=== PATIENT | female | born 1970 | race Caucasian/White ===

== ENCOUNTER 2017-12-07 09:26 | Emergency (ER) | payer BC, SELFPAY ==
[2017-12-07 09:32] VITALS: BP 119/79; PULSE 90; RESP 16; TEMP 37; O2SAT 93
--- NOTE | 2017-12-07 09:42 | DI.RAD_ITS ---
SYMPTOM/DIAGNOSIS: COUGH PA AND LATERAL CHEST: No priors for comparison. The heart is normal in size. The lungs are clear. The mediastinal structures and pleura appear intact. CONCLUSION: Normal chest.
[2017-12-07 09:53] VITALS: RESP 7; O2SAT 93
[2017-12-07] MEDS: Albuterol/Ipratropium 3 ML UPD VIAL UPD (09:53)
--- NOTE | 2017-12-07 10:17 | W.ED.GENAD ---
Discharge Plan Disposition Patient Disposition: HOME Discharge Details Chief Complaint: RespSymp Clinical Impression: Asthma, Pneumonia Primary Care Provider: Neha Espinoza ED Provider: Rudy Shah Home Meds and New Rx's Prescriptions: No Action codeine-guaifenesin 10-100 mg/5 mL liquid 10 ml PO ONCE PRN (Reason: cough) Qty: 120 RF: 0 Discharge Instructions Instructions: Asthma (ED), Pneumonia (ED) Medical Decision Making 9:45 --47-year-old female with history of childhood asthma presents with productive cough worsening over the past 2 weeks. No respiratory distress. Saturating 93% with intermittent cough. Lungs concerning for rhonchi and wheeze bilaterally. Concern for bronchitis versus pneumonia with superimposed acute asthma flare. Patient being treated with DuoNeb. Will check chest x-ray to assess for pneumonia. -- cxr reviewed and interpreted by me: scattered bilateral infiltrates, no consolidation. 10:35 -- Will start doxycyline. Will give inhaler and spacer and demonstrate use. Usual and customary discharge instructions were provided to the patient. She was advised to call her doctor on Friday to arrange follow-up appointment. Patient understands importance of timely follow-up this week. She was encouraged to return to the ER should she have any worsening or new concerning symptoms. HPI General Mode of arrival: ambulatory. Date/Time Provider Initiated Documentation: 12/07/17 09:41. Limitations to Documentation: no limitations. Information obtained by: patient. HPI Narrative: 47-year-old female with history of childhood asthma presents with chief complaint of cough. Cough has been persistent for the past 2 weeks. Cough is productive. Cough is worsening. Patient was prescribed cough medicine which is not helping. She does have some associated wheezing. No associated chest pain. No recent travel. Today she does feel feverish. Related Data Home Medications Medication Instructions Recorded Confirmed codeine 10 mg-guaifenesin 100 mg/5 10 ml PO ONCE PRN #120 ml 12/04/17 12/07/17 mL oral liquid Previous Rx's Medication Instructions Recorded codeine 10 mg-guaifenesin 100 mg/5 10 ml PO ONCE PRN #120 ml 12/04/17 mL oral liquid Allergies Allergy/AdvReac Type Severity Reaction Status Date / Time No Known Allergies Allergy Unverified 12/07/17 09:36 General Stated Complaint: RespSymp APOLINAR: 3 Review of Systems Review of Systems All systems reviewed & are unremarkable except as noted in HPI and below Cardiovascular Reports system reviewed and no additional complaints, except as docu Respiratory Reports as per HPI [facility] Social History Smoking/Tobacco Use Status: Never Surgical History Hysterectomy (01/17/11) Oophrectomy, Left (01/17/11) Exam Const General: cooperative and no acute distress HENMT Head: normocephalic and atraumatic Mouth: moist mucous membranes Eyes Conjunctivae: normal conjunctivae Sclera: normal sclerae EOM: EOM intact bilaterally Neck Neck: trachea midline and supple Resp Auscultation: no rales, rhonchi (bilateral) and wheezes lower bilaterally Cardio Jugular venous pressure: no JVD Rate: regular rate and not tachycardic Rhythm: regular rhythm GI Palpation: soft, not firm, no guarding, no masses, not rigid and nontender Skin General skin exam: no rashes or lesions noted Neuro General: alert, awake, oriented x3 and tone normal Extrem General: no edema Psych Appearance: grossly normal Mental Status: mental status grossly normal Speech and Movement: speech and movement normal Course Vital Signs Temperature 37 C 12/07/17 09:32 Pulse 90 12/07/17 09:32 Respiratory Rate 16 12/07/17 09:32 Blood Pressure 119/79 12/07/17 09:32 Pulse Oximetry 93 L 12/07/17 09:32 Temperature 37 C 12/07/17 09:32 Temperature Source Skin 12/07/17 09:32 Pulse 90 12/07/17 09:32 Respiratory Rate 16 12/07/17 09:32 Respiratory Effort Non-Labored 12/07/17 09:36 Respiratory Depth Normal 12/07/17 09:36 Blood Pressure 119/79 12/07/17 09:32 Blood Pressure Position Sitting 12/07/17 09:32 Pulse Oximetry 93 L 12/07/17 09:53 Oxygen Delivery Method Room Air 12/07/17 09:53 Oxygen Flow Rate 0 12/07/17 09:53 Pain Level 4 12/07/17 09:32
--- NOTE | 2017-12-07 10:21 | ED.GENADUL_ITS ---
Discharge Plan Disposition Patient Disposition: HOME Discharge Details Chief Complaint: RespSymp Clinical Impression: Asthma, Pneumonia Primary Care Provider: Neha Espinoza ED Provider: Rudy Shah Home Meds and New Rx's Prescriptions: No Action codeine-guaifenesin 10-100 mg/5 mL liquid 10 ml PO ONCE PRN (Reason: cough) Qty: 120 RF: 0 Discharge Instructions Instructions: Asthma (ED), Pneumonia (ED) Medical Decision Making 9:45 --47-year-old female with history of childhood asthma presents with productive cough worsening over the past 2 weeks. No respiratory distress. Saturating 93% with intermittent cough. Lungs concerning for rhonchi and wheeze bilaterally. Concern for bronchitis versus pneumonia with superimposed acute asthma flare. Patient being treated with DuoNeb. Will check chest x-ray to assess for pneumonia. -- cxr reviewed and interpreted by me: scattered bilateral infiltrates, no consolidation. 10:35 -- Will start doxycyline. Will give inhaler and spacer and demonstrate use. Usual and customary discharge instructions were provided to the patient. She was advised to call her doctor on Friday to arrange follow-up appointment. Patient understands importance of timely follow-up this week. She was encouraged to return to the ER should she have any worsening or new concerning symptoms. HPI General Mode of arrival: ambulatory . Date/Time Provider Initiated Documentation: 12/07/17 09:41 . Limitations to Documentation: no limitations . Information obtained by: patient . HPI Narrative: 47-year-old female with history of childhood asthma presents with chief complaint of cough. Cough has been persistent for the past 2 weeks. Cough is productive. Cough is worsening. Patient was prescribed cough medicine which is not helping. She does have some associated wheezing. No associated chest pain. No recent travel. Today she does feel feverish. Related Data Home Medications Medication Instructions Recorded Confirmed codeine 10 mg-guaifenesin 100 mg/5 10 ml PO ONCE PRN #120 ml 12/04/17 12/07/17 mL oral liquid Previous Rx's Medication Instructions Recorded codeine 10 mg-guaifenesin 100 mg/5 10 ml PO ONCE PRN #120 ml 12/04/17 mL oral liquid Allergies Allergy/AdvReac Type Severity Reaction Status Date / Time No Known Allergies Allergy Unverified 12/07/17 09:36 General Stated Complaint: RespSymp APOLINAR: 3 Review of Systems Review of Systems All systems reviewed & are unremarkable except as noted in HPI and below Cardiovascular Reports system reviewed and no additional complaints, except as docu Respiratory Reports as per HPI [facility] Social History Smoking/Tobacco Use Status: Never Surgical History Hysterectomy (01/17/11) Oophrectomy, Left (01/17/11) Exam Const General: cooperative and no acute distress HENMT Head: normocephalic and atraumatic Mouth: moist mucous membranes Eyes Conjunctivae: normal conjunctivae Sclera: normal sclerae EOM: EOM intact bilaterally Neck Neck: trachea midline and supple Resp Auscultation: no rales, rhonchi (bilateral) and wheezes lower bilaterally Cardio Jugular venous pressure: no JVD Rate: regular rate and not tachycardic Rhythm: regular rhythm GI Palpation: soft, not firm, no guarding, no masses, not rigid and nontender Skin General skin exam: no rashes or lesions noted Neuro General: alert, awake, oriented x3 and tone normal Extrem General: no edema Psych Appearance: grossly normal Mental Status: mental status grossly normal Speech and Movement: speech and movement normal Course Vital Signs Temperature 37 C 12/07/17 09:32 Pulse 90 12/07/17 09:32 Respiratory Rate 16 12/07/17 09:32 Blood Pressure 119/79 12/07/17 09:32 Pulse Oximetry 93 L 12/07/17 09:32 Temperature 37 C 12/07/17 09:32 Temperature Source Skin 12/07/17 09:32 Pulse 90 12/07/17 09:32 Respiratory Rate 16 12/07/17 09:32 Respiratory Effort Non-Labored 12/07/17 09:36 Respiratory Depth Normal 12/07/17 09:36 Blood Pressure 119/79 12/07/17 09:32 Blood Pressure Position Sitting 12/07/17 09:32 Pulse Oximetry 93 L 12/07/17 09:53 Oxygen Delivery Method Room Air 12/07/17 09:53 Oxygen Flow Rate 0 12/07/17 09:53 Pain Level 4 12/07/17 09:32
[2017-12-07 10:23] VITALS: RESP 4
[2017-12-07] MEDS: Albuterol HFA 8 GM 60 PUFF INH IH (10:42)
[2017-12-07] MEDS: Doxycycline Hyclate 100 MG CAP PO (10:43)
--- NOTE | 2017-12-07 10:56 | DI.VRAD_ITS ---
EXAM: XR Chest, 2 Views EXAM DATE/TIME: 12/07/2017 9:42 AM CLINICAL HISTORY: 47 years old, female; Signs and symptoms; Other: Cough TECHNIQUE: XR of the chest, 2 views. COMPARISON: No relevant prior studies available. FINDINGS: Lungs: Unremarkable. No consolidation. Pleural space: Unremarkable. No pleural effusion. No pneumothorax. Heart/Mediastinum: Unremarkable. No cardiomegaly. Bones/joints: Unremarkable for patient's age. IMPRESSION: No acute findings. Dictated and Authenticated by: Lily Barr MD. Ordering:JEFERSON LAUREN MD
[2017-12-07 11:05] VITALS: BP 121/78; PULSE 87; RESP 16; TEMP 37; O2SAT 95
== END 2017-12-07 10:57 | disposition home or self-care (01) ==
PROVIDERS: Emergency Provider Student in an Organized Health Care Education/Training Program
DX: J18.9 Pneumonia, unspecified organism (principal); J45.909 Unspecified asthma, uncomplicated
CPT/HCPCS: 94640; 99283; 71046; J7620

== ENCOUNTER 2017-12-09 08:41 | Inpatient (IN) | payer BC, SELFPAY ==
[2017-12-09] VITALS (12 sets, daily range): BP systolic 103–135; BP diastolic 65–96; PULSE 86–105; RESP 1–22; TEMP 36.3–37.2; O2SAT 93–97
[2017-12-09] MEDS: predniSONE 20 MG TAB 60 MG PO (09:42)
[2017-12-09] MEDS: Lactated Ringers 1,000 ML 1000 ML IV (09:43)
[2017-12-09] MEDS: Albuterol/Ipratropium 3 ML UPD VIAL UPD ×2 (09:44→10:03)
[2017-12-09 09:48] LABS: Lactate-non-spesis 0.9 mmol/L (0.6-1.4)
[2017-12-09 09:50] LABS: Abs Immature Grans 0.03 k/cumm (0.0-0.09); Absolute Basophil Count 0.05 k/cumm (0.0-0.2); Absolute Eosinophil Count 0.86 k/cumm (0.0-0.7); Absolute Lymphocyte Count 1.38 k/cumm (1.2-3.4); Absolute Monocyte Count 0.47 k/cumm (0.11-0.7); Basophils % 0.6; Eosinophils % 10.9; HCT 45.1 % (36.0-46.0); HGB 15.7 g/dL (12.0-15.5); Immature Grans % 0.4; Lymphocytes % 17.5; Mean Corp. HGB Concentration 34.8 g/dL (32.0-36.0); Mean Corpuscular Hemoglobin 31.2 pg (27.0-33.0); Mean Corpuscular Volume 89.7 fL (80-95); Mean Platelet Volume 10.3 fL (8.0-11.0); Neutrophils % 64.6; Platelet Count 233 x1000/uL (130-400); RBC 5.03 m/cumm (4.00-5.20); RBC Distribution Width 13.8 % (11.7-14.6); White Blood Cell Count 7.89 k/cumm (4.4-10.8)
[2017-12-09 10:04] LABS: ALT 30 U/L (12-78); AST 23 U/L (15-37); Albumin 3.6 g/dL (3.4-5.0); Alkaline Phosphatase 78 U/L (46-116); Anion Gap 9.6 mmol/L (3-11); BUN 10 mg/dL (7-18); Bilirubin, Total 0.5 mg/dL (0.2-1.0); CO2 24.4 mmol/L (21.0-32.0); CREATININE 0.96 mg/dL (0.55-1.02); Calcium 9.2 mg/dL (8.5-10.1); Chloride 105 mmol/L (98-107); Glucose 106 mg/dL (70-100); Potassium 4.2 mmol/L (3.5-5.1); Sodium 139 mmol/L (136-145); Total Protein 7.4 g/dL (6.4-8.2)
--- NOTE | 2017-12-09 10:24 | DI.RAD_ITS ---
SYMPTOM/DIAGNOSIS: COUGH PA AND LATERAL CHEST: Comparison is made with 12/07/17. The heart is normal in size. The lungs are clear. The mediastinal structures and pleura appear intact. CONCLUSION: Normal chest.
--- NOTE | 2017-12-09 12:00 | ED.GENADUL_ITS ---
Discharge Plan Discharge Details Chief Complaint: RespSymp Primary Care Provider: Neha Espinoza ED Provider: Rudy Shah Home Meds and New Rx's Prescriptions: No Action codeine-guaifenesin 10-100 mg/5 mL liquid 10 ml PO ONCE PRN (Reason: cough) Qty: 120 RF: 0 doxycycline hyclate 100 mg capsule 100 mg PO BID Qty: 13 RF: 0 albuterol sulfate [Ventolin HFA] 90 mcg/actuation Hfa Aerosol Inhaler 2 puff Inhalation Q4H PRN PRN30 Days RF: 0 Medical Decision Making 47-year-old female with history of childhood asthma, here with 2+ weeks of productive cough and wheezing. Tachycardic on arrival. Patient was seen here on 12/07/2017 and diagnosed with bronchitis versus early pneumonia with superimposed acute asthma flare. She was started on albuterol inhaler as well as doxycycline which she has been using without relief. Patient given IVF bolus, 2 DuoNeb and one albuterol nebulized treatments here in the emergency department. She was also given prednisone. Chest x-ray was reviewed and interpreted by radiology: Negative. Labs were reviewed and are nondiagnostic. Of note she does not have a leukocytosis and normal lactate. Reassessment, patient continues to have significant wheeze and productive cough. She continues to have SOB. Given failing outpatient treatment, and no improvement here in the emergency department, I will admit for further treatment. HPI General Date/Time Provider Initiated Documentation: 12/09/17 09:04 . Limitations to Documentation: no limitations . Information obtained by: patient . HPI Narrative: 47-year-old female with history of childhood asthma presents with chief complaint of wheezing. Patient notes productive cough persistent for the past 2 weeks. She also has associated wheezing that is not improved with albuterol inhaler that she has been using every 4 hours as prescribed. Patient was seen here on 12/07/2017 and started on albuterol inhaler as well as doxycycline. Related Data Home Medications Medication Instructions Recorded Confirmed codeine 10 mg-guaifenesin 100 mg/5 10 ml PO ONCE PRN #120 ml 12/04/17 12/09/17 mL oral liquid albuterol sulfate [Ventolin HFA] 2 puff INHALATION Q4H PRN PRN 30 12/07/17 Days gm doxycycline hyclate 100 mg PO BID #13 cap 12/07/17 12/09/17 Previous Rx's Medication Instructions Recorded codeine 10 mg-guaifenesin 100 mg/5 10 ml PO ONCE PRN #120 ml 12/04/17 mL oral liquid albuterol sulfate [Ventolin HFA] 2 puff INHALATION Q4H PRN PRN 30 12/07/17 Days gm doxycycline hyclate 100 mg PO BID #13 cap 12/07/17 Allergies Allergy/AdvReac Type Severity Reaction Status Date / Time No Known Allergies Allergy Unverified 12/09/17 08:49 General Stated Complaint: RespSymp APOLINAR: 3 Review of Systems Review of Systems All systems reviewed & are unremarkable except as noted in HPI and below ENT Reports otalgia and Reports nasal congestion Cardiovascular Denies chest pain and Reports dyspnea Respiratory Reports chest congestion, Reports cough, Reports dyspnea and Reports wheezing Allergic/Immunologic Reports wheezing Exam Const General: cooperative and no acute distress HENMT Head: normocephalic and atraumatic Ears: TM abnormal bulging bilaterally Mouth: moist mucous membranes Throat: posterior oropharynx normal Eyes Conjunctivae: normal conjunctivae Sclera: normal sclerae EOM: EOM intact bilaterally Neck Neck: trachea midline and supple Resp Auscultation: rales bilaterally and wheezes (bilateral) expiratory wheezes Cardio Jugular venous pressure: no JVD Rate: regular rate and not tachycardic Rhythm: regular rhythm GI Palpation: soft, not firm, no guarding, no masses, not rigid and nontender Skin General skin exam: no rashes or lesions noted Neuro General: alert, awake, oriented x3 and tone normal Extrem General: no edema Psych Appearance: grossly normal Mental Status: mental status grossly normal Speech and Movement: speech and movement normal Course Vital Signs Temperature 37.2 C 12/09/17 08:45 Pulse 105 H 12/09/17 08:45 Respiratory Rate 18 12/09/17 08:45 Blood Pressure 134/96 H 12/09/17 08:45 Pulse Oximetry 95 12/09/17 08:45 Temperature 37.2 C 12/09/17 08:45 Temperature Source Skin 12/09/17 08:45 Pulse 105 H 12/09/17 08:45 Respiratory Rate 18 12/09/17 08:45 Respiratory Effort 12/09/17 08:46 Respiratory Depth Normal 12/09/17 08:46 Blood Pressure 134/96 H 12/09/17 08:45 Blood Pressure Position Sitting 12/09/17 08:45 Pulse Oximetry 95 12/09/17 08:45 Oxygen Delivery Method Room Air 12/09/17 08:45 Oxygen Flow Rate 0 12/09/17 08:45
[2017-12-09] MEDS: Albuterol 2.5 MG/3 ML INH SOLN VIAL UPD (12:19)
[2017-12-09] MEDS: Levalbuterol 1.25 MG/3 ML UPD VIAL UPD (14:23)
[2017-12-09] MEDS: Enoxaparin 40 MG/0.4 ML SYR SC (14:35)
[2017-12-09] MEDS: Normal Saline Flush 10 ML SYR (14:36)
[2017-12-09] MEDS: guaiFENesin/CODEINE PHOSPHATE 10 ML CUP PO ×2 (14:36→19:09)
[2017-12-09] MEDS: Normal Saline 1,000 ML 125 ML IV ×2 (14:37→22:39)
--- NOTE | 2017-12-09 18:13 | HPE_ITS ---
Date of service: 12/09/17 Time of Service: 18:00 Assessment and Plan (1) Asthma: Current visit: Yes Status: Chronic Acute exacerbation in setting of likely infectious Bronchitis. Continue aggressive nebs with Duonebs, Budesonide, and Levalbuterol, IV Steroids, and antitussives. Monitor symptoms and pulse ox carefully. (2) Tracheobronchitis: Current visit: Yes Status: Acute Will continue to treat as potentially bacterial Tracheobronchitis - continue Doxycycline, now Day #2, as well as aggressive nebs and IV steroids as above. (3) DVT prophylaxis: Current visit: Yes Status: Acute SC Lovenox. History of Present Illness Chief Complaint: Cough Narrative: Very pleasant 47-year-old woman with a past medical history significant for asthma, initially presented to [facility] 2 days ago with complaints of 2 weeks of unremitting cough. Mrs. Awad originally presented to the emergency department 2 days ago with a reported 2-week history of a continuous cough which causes significant burning and lightheadedness while symptomatic. Initial evaluation in the emergency department included a chest x-ray which was interpreted as a negative , and she was prescribed an antibiotic with doxycycline and an inhaler and discharged home. Despite these measures the patient's symptoms continued and progressed, leading to a repeat visit to the emergency department. A repeat chest x-ray was performed and again interpreted as negative, and other than borderline tachycardia the patient was hemodynamically stable and afebrile. However given the progression and the significance of her symptoms, as well as perceived likely acute exacerbation of her underlying asthma, the patient was referred for admission for further evaluation and treatment. At the time of admission the patient is denying any fevers or chills, but endorsing a cough that is nonproductive. She denies any GI symptoms other than some mild nausea with continued cough pain, but denies any diarrhea or vomiting. She also endorses lightheadedness and near syncope with continued coughing, and subjective sensation of dehydration. Review of Systems Review of Systems All systems reviewed & are unremarkable except as noted in HPI and below Meds Home Medications Medication Instructions Recorded Confirmed Type codeine 10 mg-guaifenesin 100 mg/5 10 ml PO ONCE PRN #120 ml 12/04/17 12/09/17 Rx mL oral liquid albuterol sulfate [Ventolin HFA] 2 puff INHALATION Q4H PRN PRN 30 12/07/17 Rx Days gm doxycycline hyclate 100 mg PO BID #13 cap 12/07/17 12/09/17 Rx Allergies Allergy/AdvReac Type Severity Reaction Status Date / Time No Known Allergies Allergy Unverified 12/09/17 08:49 Exam Narrative Exam Narrative: General: Patient appears mildly ill but not toxic, AAOX3, NAD Neck: Supple CV: Regular, borderline tachycardic, S1S2, No rubs, murmurs, or gallops. Pulmonary: Diffusely rhonchorous breath sounds with wheezing Abdomen: + Bowel Sounds, soft, nontender, nondistended Vascular: No lower extremity edema Neurologic: CN II-XII grossly intact. No focal deficits. Psych: Normal mood and affect. Results Labs : 12/09/17 09:40 12/09/17 09:40 Laboratory Results - last 24 hr 12/09/17 12/09/17 12/09/17 09:40 09:40 09:40 WBC 7.89 RBC 5.03 Hgb 15.7 H Hct 45.1 MCV 89.7 MCH 31.2 MCHC 34.8 RDW 13.8 Plt Count 233 MPV 10.3 Immature Gran % 0.4 Neutrophils % 64.6 Lymphocytes % 17.5 Monocytes % 6.0 Eosinophils % 10.9 Basophils % 0.6 Absolute Neutrophils 5.10 Absolute Lymphocytes 1.38 Absolute Monocytes 0.47 Absolute Eosinophils 0.86 H Absolute Basophils 0.05 Sodium 139 Potassium 4.2 Chloride 105 Carbon Dioxide 24.4 Anion Gap 9.6 BUN 10 Creatinine 0.96 Estimated GFR/1.73 m2 >= 60.00 Glucose 106 H Lactate 0.9 Calcium 9.2 Total Bilirubin 0.5 AST 23 ALT 30 Alkaline Phosphatase 78 Total Protein 7.4 Albumin 3.6
[2017-12-09] MEDS: methylPREDNISolone SUCC 40 MG VIAL IVP (19:08)
[2017-12-09] MEDS: Budesonide 0.5 MG/2 ML UPD VIAL UPD (19:09)
[2017-12-09] MEDS: Doxycycline Hyclate 100 MG CAP PO (19:09)
[2017-12-09] MEDS: Benzonatate 200 MG CAP PO (19:16)
[2017-12-10] MEDS: Normal Saline 1,000 ML 125 ML IV ×2 (07:01→15:59)
[2017-12-10] MEDS: methylPREDNISolone SUCC 40 MG VIAL IVP ×2 (07:02→18:58)
[2017-12-10] MEDS: Normal Saline Flush 10 ML SYR ×4 (07:02→18:59)
[2017-12-10 07:15] VITALS: PULSE 90; RESP 20; RESP 4; O2SAT 96
[2017-12-10] MEDS: Albuterol/Ipratropium 3 ML UPD VIAL UPD ×2 (07:15→14:09)
[2017-12-10] MEDS: Budesonide 0.5 MG/2 ML UPD VIAL UPD ×2 (07:17→20:29)
[2017-12-10 07:28] LABS: Abs Immature Grans 0.04 k/cumm (0.0-0.09); Absolute Basophil Count 0.02 k/cumm (0.0-0.2); Absolute Lymphocyte Count 1.41 k/cumm (1.2-3.4); Absolute Monocyte Count 0.71 k/cumm (0.11-0.7); Absolute Neutrophil Count 14.26 k/cumm (1.2-6.7); Basophils % 0.1; HCT 39.8 % (36.0-46.0); HGB 14.5 g/dL (12.0-15.5); Immature Grans % 0.2; Lymphocytes % 8.6; Mean Corp. HGB Concentration 36.4 g/dL (32.0-36.0); Mean Corpuscular Hemoglobin 33.4 pg (27.0-33.0); Mean Corpuscular Volume 91.7 fL (80-95); Mean Platelet Volume 10.5 fL (8.0-11.0); Monocytes % 4.3; Neutrophils % 86.8; Platelet Count 247 x1000/uL (130-400); RBC 4.34 m/cumm (4.00-5.20); RBC Distribution Width 13.9 % (11.7-14.6); White Blood Cell Count 16.43 k/cumm (4.4-10.8)
[2017-12-10 07:35] VITALS: BP 135/71; PULSE 95; RESP 22; TEMP 36.3; O2SAT 93
[2017-12-10 07:44] LABS: Anion Gap 9.7 mmol/L (3-11); BUN 9 mg/dL (7-18); CO2 23.3 mmol/L (21.0-32.0); CREATININE 0.85 mg/dL (0.55-1.02); Calcium 8.6 mg/dL (8.5-10.1); Chloride 107 mmol/L (98-107); Glucose 108 mg/dL (70-100); Potassium 3.9 mmol/L (3.5-5.1); Sodium 140 mmol/L (136-145)
[2017-12-10] MEDS: Doxycycline Hyclate 100 MG CAP PO ×2 (07:46→20:28)
[2017-12-10] MEDS: Benzonatate 200 MG CAP PO ×3 (07:46→20:28)
[2017-12-10] MEDS: guaiFENesin/CODEINE PHOSPHATE 10 ML CUP PO ×3 (11:11→21:49)
[2017-12-10 11:26] VITALS: PULSE 98; RESP 14; RESP 4; RESP 7; O2SAT 92
[2017-12-10] MEDS: Levalbuterol 1.25 MG/3 ML UPD VIAL UPD (11:26)
--- NOTE | 2017-12-10 11:50 | PHARADMIT ---
Addendum entered by Anthony Hogue III 12/11/17 16:08: Pharmacy Note Subjective Infectious bronchitis, treated with aggresive nebulizer & steroid therapy. Objective VS-OK No Labs No BM yet Assessment Continue oral Doxycycline, using Tessalon & Daniel-AC for persistent cough. Plan Plan was for her to be discharged today, but feels she needs aggressive therapy. Original Note: Admission Pharmacy Clinical Review ACUTE BRONCHITIS Code Status Full Code Current Weight Wgt- 90.7 kg Renally Cleared and Narrow Therapeutic Index Meds CrCl~ 76.5 mL/min Meds-OK QTc Value / Action Taken NA BP Control, Fever BP- 135/71 Tmax- 37.0C Electrolytes reviewed Na- 140 K+3.9 DVT Prophylaxis Lovenox Opiate Usage / Scheduled Bowel Regimen Ordered Yes Yes Plt/SCr for Heparin / Enoxaparin Plts-247 SCr- 0.85 INR for Warfarin na H/H stable, WBC/Bands H&H- 14.5/39.8 WBC- 16.4 Antibiotic appropriateness Doxycycline Cultures and Sensitivities none Surgical ABX d/c within 24 hr na DM control / Insulin Dosing BG- 108 Heart Failure (Check EF%) (HOSEA's, B-Block, Diuretics) none IV to PO Switch No Home Meds Reviewed Yes Home Meds Not Ordered Ventolin inhaler Comments
--- NOTE | 2017-12-10 13:24 | INITIAL_ITS ---
- If Service Date Differs Date of service: 12/10/17 Time of Service: 12:52 Care Management Initial Assess REASON FOR HOSPITALIZATION:: Bronchititis, asthma PAST MEDICAL HISTORY/PAST SURGICAL HISTORY:: Asthma, Surgical Hx: Hysterectomy, Oophrectomy PREVIOUS FUNCTIONAL STATUS/SOCIAL/FAMILY SUPPORTS:: Yandy, lives with her spouse in [place], [place] she is independent. 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 CURRENT FUNCTIONAL STATUS:: Yandy is sitting up in bed she is alert and engaged with CM. She states she has not had symptoms of her asthma in about 20 years and has not been taking medicaitons to treat it. ADVANCE DIRECTIVES:: None on file would like the forms to review Has patient been provided with information about the portal?: Yes Did the patient sign up for the portal?: No CODE STATUS:: Full Code INSURANCE COVERAGE / FINANCIAL ISSUES:: [employer] CURRENT HOME/COMMUNITY SERVICES/EQUIPMENT:: No current services at this time. PRIMARY CARE PHYSICIAN:: Neha Espinoza APRN POTENTIAL DISCHARGE NEEDS:: Follow up appointment with primary care scheduled prior to discharge. PATIENT/FAMILY EDUCATION NEEDS:: Discharge education, limitations, follow-up plan of care, ask me 3 discussion and self-management. TRANSPORTATION:: Via private car with family at time of discharge. PLAN:: Yandy is receiving IV fluids, IV steroids, and nebulizer treatments. She continues on oral antibiotics. She continues to have a harsh cough. She will be discharged home when medically ready per provider.
--- NOTE | 2017-12-10 15:01 | CHAPLAIN ---
Yandy said her respiratory problems came on quickly and she is beginning to feel better. 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 She told me she went to work at the [employer] the week after she graduated from high school and has been there 30 years. Her parents and will be in later to visit. She seems to be comfortable being here, and said she prefers to be here until her respiratory condition improves.
[2017-12-10] MEDS: Enoxaparin 40 MG/0.4 ML SYR SC (15:13)
[2017-12-10 15:56] VITALS: BP 122/70; PULSE 93; RESP 18; TEMP 36; O2SAT 92
--- NOTE | 2017-12-10 17:15 | PGE_ITS ---
Date of service: 12/10/17 Time of Service: 17:11 Assessment and Plan (1) Asthma: Current visit: Yes Status: Chronic Acute exacerbation in setting of likely infectious Bronchitis. Continue aggressive nebs with Duonebs, Budesonide, and Levalbuterol, IV Steroids, and antitussives. Monitor symptoms and pulse ox carefully. (2) Tracheobronchitis: Current visit: Yes Status: Acute Will continue to treat as potentially bacterial Tracheobronchitis - continue Doxycycline, now Day #3, as well as aggressive nebs and IV steroids as above. (3) DVT prophylaxis: Current visit: Yes Status: Acute SC Lovenox. Subjective Interval history since last seen: Very pleasant 47-year-old woman with a past medical history significant for asthma, admitted from [facility] with diagnosis of Bronchitis with concurrent asthma exacerbation. Mrs. Awad originally presented to the emergency department 2 days ago with a reported 2-week history of a continuous cough which causes significant burning and lightheadedness while symptomatic. Initial evaluation in the emergency department included a chest x-ray which was interpreted as a negative , and she was prescribed an antibiotic with doxycycline and an inhaler and discharged home. Despite these measures the patient's symptoms continued and progressed, leading to a repeat visit to the emergency department. A repeat chest x-ray was performed and again interpreted as negative, and other than borderline tachycardia the patient was hemodynamically stable and afebrile. However given the progression and the significance of her symptoms, as well as perceived likely acute exacerbation of her underlying asthma, the patient was referred for admission for further evaluation and treatment. Today the patient reports unchanged symptoms overall, with continued cough and wheezing, but not worsened. Exam Narrative Exam Narrative: General: Patient appears mildly ill but not toxic, AAOX3, NAD Neck: Supple CV: Regular, borderline tachycardic, S1S2, No rubs, murmurs, or gallops. Pulmonary: Diffusely rhonchorous breath sounds with wheezing Abdomen: + Bowel Sounds, soft, nontender, nondistended Vascular: No lower extremity edema Psych: Normal mood and affect. Objective Objective Clinical Data: Abnormal lab results 12/10/17 12/10/17 Range/Units 07:00 07:00 WBC 16.43 H D (4.4-10.8) k/cumm MCH 33.4 H (27.0-33.0) pg MCHC 36.4 H (32.0-36.0) g/dL Absolute Neutrophils 14.26 H (1.2-6.7) k/cumm Absolute Monocytes 0.71 H (0.11-0.7) k/cumm Glucose 108 H (70-100) mg/dL Vital Signs Temperature 36.0 C L 12/10/17 15:56 Temperature Source Tympanic 12/10/17 15:56 Pulse 93 H 12/10/17 15:56 Pulse Rhythm Regular 12/10/17 07:47 Respiratory Rate 18 12/10/17 15:56 Respiratory Effort 12/10/17 07:47 Respiratory Depth Normal 12/10/17 07:47 Respiratory Pattern Normal 12/10/17 07:47 Blood Pressure 122/70 12/10/17 15:56 Blood Pressure Position Sitting 12/09/17 08:45 Pulse Oximetry 92 L 12/10/17 15:56 Oxygen Delivery Method Room Air 12/10/17 15:56 Oxygen Flow Rate 0 12/10/17 15:56 Pain Level 0 12/09/17 14:45 Intake & Output 12/09/17 12/10/17 12/10/17 23:59 11:59 23:59 Intake Total 1000 / 1000 2660 / 2660 1600 / 1600 Output Total 1700 / 1700 2500 / 2500 700 / 700 Balance -700 / -700 160 / 160 900 / 900 Weight 90.718 kg Intake: IV 1000 / 1000 1000 / 1000 1000 / 1000 Oral 1660 / 1660 600 / 600 Output: Urine 1700 / 1700 2500 / 2500 700 / 700 Other: Urine Color Yellow Yellow Yellow Urine Appearance Clear Clear Clear Urine Odor None Normal Normal Voiding Methods Toilet Toilet Toilet Laboratory Results WBC 16.43 k/cumm (4.4-10.8) H D 12/10/17 07:00 RBC 4.34 m/cumm (4.00-5.20) 12/10/17 07:00 Hgb 14.5 g/dL (12.0-15.5) 12/10/17 07:00 Hct 39.8 % (36.0-46.0) 12/10/17 07:00 MCV 91.7 fL (80-95) 12/10/17 07:00 MCH 33.4 pg (27.0-33.0) H 12/10/17 07:00 MCHC 36.4 g/dL (32.0-36.0) H 12/10/17 07:00 RDW 13.9 % (11.7-14.6) 12/10/17 07:00 Plt Count 247 x1000/uL (130-400) 12/10/17 07:00 MPV 10.5 fL (8.0-11.0) 12/10/17 07:00 Immature Gran % 0.2 12/10/17 07:00 Neutrophils % 86.8 12/10/17 07:00 Lymphocytes % 8.6 12/10/17 07:00 Monocytes % 4.3 12/10/17 07:00 Eosinophils % 0.0 12/10/17 07:00 Basophils % 0.1 12/10/17 07:00 Absolute Neutrophils 14.26 k/cumm (1.2-6.7) H 12/10/17 07:00 Absolute Lymphocytes 1.41 k/cumm (1.2-3.4) 12/10/17 07:00 Absolute Monocytes 0.71 k/cumm (0.11-0.7) H 12/10/17 07:00 Absolute Eosinophils 0.00 k/cumm (0.0-0.7) 12/10/17 07:00 Absolute Basophils 0.02 k/cumm (0.0-0.2) 12/10/17 07:00 Sodium 140 mmol/L (136-145) 12/10/17 07:00 Potassium 3.9 mmol/L (3.5-5.1) 12/10/17 07:00 Chloride 107 mmol/L (98-107) 12/10/17 07:00 Carbon Dioxide 23.3 mmol/L (21.0-32.0) 12/10/17 07:00 Anion Gap 9.7 mmol/L (3-11) 12/10/17 07:00 BUN 9 mg/dL (7-18) 12/10/17 07:00 Creatinine 0.85 mg/dL (0.55-1.02) 12/10/17 07:00 Estimated GFR/1.73 m2 >= 60.00 (mL/min/1.73m2) 12/10/17 07:00 Glucose 108 mg/dL (70-100) H 12/10/17 07:00 Lactate 0.9 mmol/L (0.6-1.4) 12/09/17 09:40 Calcium 8.6 mg/dL (8.5-10.1) 12/10/17 07:00 Total Bilirubin 0.5 mg/dL (0.2-1.0) 12/09/17 09:40 AST 23 U/L (15-37) 12/09/17 09:40 ALT 30 U/L (12-78) 12/09/17 09:40 Alkaline Phosphatase 78 U/L (46-116) 12/09/17 09:40 Total Protein 7.4 g/dL (6.4-8.2) 12/09/17 09:40 Albumin 3.6 g/dL (3.4-5.0) 12/09/17 09:40
[2017-12-11] VITALS (8 sets, daily range): BP systolic 113–152; BP diastolic 69–77; PULSE 81–96; RESP 2–18; TEMP 36.1–37.1; O2SAT 93–96
[2017-12-11] MEDS: Levalbuterol 1.25 MG/3 ML UPD VIAL UPD (00:16)
[2017-12-11] MEDS: Normal Saline 1,000 ML 125 ML IV ×3 (02:00→19:52)
[2017-12-11] MEDS: Normal Saline Flush 10 ML SYR (06:02)
[2017-12-11] MEDS: methylPREDNISolone SUCC 40 MG VIAL IVP ×2 (06:02→18:46)
[2017-12-11] MEDS: Albuterol/Ipratropium 3 ML UPD VIAL UPD ×2 (07:24→17:08)
[2017-12-11] MEDS: Budesonide 0.5 MG/2 ML UPD VIAL UPD ×2 (07:25→19:44)
[2017-12-11] MEDS: Doxycycline Hyclate 100 MG CAP PO ×2 (10:04→19:45)
[2017-12-11] MEDS: Benzonatate 200 MG CAP PO ×3 (10:04→19:44)
[2017-12-11] MEDS: guaiFENesin/CODEINE PHOSPHATE 10 ML CUP PO ×3 (11:20→21:22)
--- NOTE | 2017-12-11 13:06 | DI.RAD_ITS ---
SYMPTOMS/DIAGNOSIS: ABNL EXAM, ? DEVELOPING INFILTRATE PA AND LATERAL CHEST: The heart is normal in size. The lungs are clear. The mediastinal structures and pleura appear intact. CONCLUSION: Normal chest.
[2017-12-11] MEDS: Enoxaparin 40 MG/0.4 ML SYR SC (14:39)
[2017-12-11] MEDS: Docusate Sodium 100 MG CAP PO (15:37)
--- NOTE | 2017-12-11 15:54 | PGE_ITS ---
Assessment and Plan (1) Asthma: Current visit: Yes Status: Chronic Acute exacerbation in setting of likely infectious Bronchitis. Continue aggressive nebs with Duonebs, Budesonide, and Levalbuterol, IV Steroids, and antitussives. Monitor symptoms and pulse ox carefully. CXR repeated to ensure lack of infiltrate - again normal. (2) Tracheobronchitis: Current visit: Yes Status: Acute Will continue to treat as potentially bacterial Tracheobronchitis - continue Doxycycline, now Day #4, as well as aggressive nebs and IV steroids as above. (3) DVT prophylaxis: Current visit: Yes Status: Acute SC Lovenox. Subjective Interval history since last seen: Very pleasant 47-year-old woman with a past medical history significant for asthma, admitted from [facility] with diagnosis of Bronchitis with concurrent asthma exacerbation. Mrs. Awad originally presented to the emergency department 2 days ago with a reported 2-week history of a continuous cough which causes significant burning and lightheadedness while symptomatic. Initial evaluation in the emergency department included a chest x-ray which was interpreted as a negative , and she was prescribed an antibiotic with doxycycline and an inhaler and discharged home. Despite these measures the patient's symptoms continued and progressed, leading to a repeat visit to the emergency department. A repeat chest x-ray was performed and again interpreted as negative, and other than borderline tachycardia the patient was hemodynamically stable and afebrile. However given the progression and the significance of her symptoms, as well as perceived likely acute exacerbation of her underlying asthma, the patient was referred for admission for further evaluation and treatment. Today the patient reports essentially unchanged symptoms, with continued cough and wheezing, but perhaps mildly improved. She has developed a mild leukocytosis on IV Steroids. Exam Narrative Exam Narrative: General: Patient appears mildly ill but not toxic, AAOX3, NAD Neck: Supple CV: Regular, borderline tachycardic, S1S2, No rubs, murmurs, or gallops. Pulmonary: Diffusely rhonchorous breath sounds with wheezing. Air entry has improved. Questionable mild area of crackles and decreased breath sounds in the left base. Abdomen: + Bowel Sounds, soft, nontender, nondistended Vascular: No lower extremity edema Psych: Normal mood and affect. Objective Objective Clinical Data: Vital Signs Temperature 36.1 C L 12/11/17 07:45 Temperature Source Tympanic 12/11/17 07:45 Pulse 96 H 12/11/17 07:45 Pulse Rhythm Regular 12/11/17 10:15 Respiratory Rate 18 12/11/17 07:45 Respiratory Effort Non-Labored 12/11/17 10:15 Respiratory Depth Normal 12/11/17 10:15 Respiratory Pattern Normal 12/11/17 10:15 Blood Pressure 152/74 H 12/11/17 07:45 Blood Pressure Position Sitting 12/09/17 08:45 Pulse Oximetry 94 L 12/11/17 07:45 Oxygen Delivery Method Room Air 12/11/17 07:45 Oxygen Flow Rate 0 12/11/17 07:45 Pain Level 4 12/11/17 07:45 Intake & Output 12/10/17 12/11/17 12/11/17 23:59 11:59 23:59 Intake Total 3254.167 / 3254.167 2533.75 / 2533.75 Output Total 1700 / 1700 2200 / 2200 Balance 1554.167 / 1554.167 333.75 / 333.75 Intake: IV 1154.167 / 1358.743 8429.75 / 1843.75 Oral 2100 / 2100 690 / 690 Output: Urine 1700 / 1700 2200 / 2200 Other: Urine Color Yellow Yellow Urine Appearance Clear Clear Urine Odor Normal Normal Comment Voids x 2 in hat on toilet Voiding Methods Toilet Toilet Laboratory Results WBC 16.43 k/cumm (4.4-10.8) H D 12/10/17 07:00 RBC 4.34 m/cumm (4.00-5.20) 12/10/17 07:00 Hgb 14.5 g/dL (12.0-15.5) 12/10/17 07:00 Hct 39.8 % (36.0-46.0) 12/10/17 07:00 MCV 91.7 fL (80-95) 12/10/17 07:00 MCH 33.4 pg (27.0-33.0) H 12/10/17 07:00 MCHC 36.4 g/dL (32.0-36.0) H 12/10/17 07:00 RDW 13.9 % (11.7-14.6) 12/10/17 07:00 Plt Count 247 x1000/uL (130-400) 12/10/17 07:00 MPV 10.5 fL (8.0-11.0) 12/10/17 07:00 Immature Gran % 0.2 12/10/17 07:00 Neutrophils % 86.8 12/10/17 07:00 Lymphocytes % 8.6 12/10/17 07:00 Monocytes % 4.3 12/10/17 07:00 Eosinophils % 0.0 12/10/17 07:00 Basophils % 0.1 12/10/17 07:00 Absolute Neutrophils 14.26 k/cumm (1.2-6.7) H 12/10/17 07:00 Absolute Lymphocytes 1.41 k/cumm (1.2-3.4) 12/10/17 07:00 Absolute Monocytes 0.71 k/cumm (0.11-0.7) H 12/10/17 07:00 Absolute Eosinophils 0.00 k/cumm (0.0-0.7) 12/10/17 07:00 Absolute Basophils 0.02 k/cumm (0.0-0.2) 12/10/17 07:00 Sodium 140 mmol/L (136-145) 12/10/17 07:00 Potassium 3.9 mmol/L (3.5-5.1) 12/10/17 07:00 Chloride 107 mmol/L (98-107) 12/10/17 07:00 Carbon Dioxide 23.3 mmol/L (21.0-32.0) 12/10/17 07:00 Anion Gap 9.7 mmol/L (3-11) 12/10/17 07:00 BUN 9 mg/dL (7-18) 12/10/17 07:00 Creatinine 0.85 mg/dL (0.55-1.02) 12/10/17 07:00 Estimated GFR/1.73 m2 >= 60.00 (mL/min/1.73m2) 12/10/17 07:00 Glucose 108 mg/dL (70-100) H 12/10/17 07:00 Lactate 0.9 mmol/L (0.6-1.4) 12/09/17 09:40 Calcium 8.6 mg/dL (8.5-10.1) 12/10/17 07:00 Total Bilirubin 0.5 mg/dL (0.2-1.0) 12/09/17 09:40 AST 23 U/L (15-37) 12/09/17 09:40 ALT 30 U/L (12-78) 12/09/17 09:40 Alkaline Phosphatase 78 U/L (46-116) 12/09/17 09:40 Total Protein 7.4 g/dL (6.4-8.2) 12/09/17 09:40 Albumin 3.6 g/dL (3.4-5.0) 12/09/17 09:40 Objective Narrative Objective Narrative: Exam(s) a RAD:XR chest 2V PA & lateral SYMPTOMS/DIAGNOSIS: ABNL EXAM, ? DEVELOPING INFILTRATE PA AND LATERAL CHEST: The heart is normal in size. The lungs are clear. The mediastinal structures and pleura appear intact. CONCLUSION: Normal chest.
--- NOTE | 2017-12-11 16:16 | PDOC.CMPRO ---
- If Service Date Differs Date of service: 12/11/17 Time of Service: 16:16 Care Management Progress Note S/O: CM met with patient at the bedside she states she does not feel ready for discharge today. She continues to have some shortness of breath with ambulation from the bathroom back to the bed. She is currently receiving IV steroids, oral antibiotics and updrafts. her oxygen saturation has been 90's on room air. She continues to have a harsh cough. She will be changed to inpatient today and anticipate she will be discharged on Friday with follow up primary care. CM provided advance directive packet and instruction she will review. She will notify CM if she has questions or assistance in completing the form. A: Betty is a 47 year old female with a history of asthma admitted with acute bronchitises. P: Betty will be discharged home when medically ready per provider. She will transition to oral steroids, and continue oral antibiotics. She will need a primary care appointment scheduled prior to discharge. CM to continue to provide support to patient, family and care team discharge planning.
[2017-12-11] MEDS: Normal Saline Flush 10 ML SYR 30 ML (18:46)
[2017-12-11] MEDS: Polyethylene Glycol 3350 17 GM PACKET PO (19:44)
[2017-12-12 00:14] VITALS: BP 132/77; PULSE 85; RESP 18; TEMP 36.4; O2SAT 96
[2017-12-12] MEDS: Normal Saline 1,000 ML 125 ML IV (03:31)
[2017-12-12] MEDS: methylPREDNISolone SUCC 40 MG VIAL IVP (06:00)
[2017-12-12] MEDS: Normal Saline Flush 10 ML SYR (06:09)
[2017-12-12 06:10] VITALS: RESP 2; RESP 4
[2017-12-12] MEDS: Albuterol/Ipratropium 3 ML UPD VIAL UPD (06:10)
[2017-12-12 06:16] VITALS: PULSE 88; O2SAT 99
[2017-12-12 07:40] VITALS: BP 136/80; PULSE 90; RESP 18; TEMP 37; O2SAT 93
[2017-12-12] MEDS: Budesonide 0.5 MG/2 ML UPD VIAL UPD (08:49)
[2017-12-12 08:50] VITALS: O2SAT 94
[2017-12-12] MEDS: Benzonatate 200 MG CAP PO (09:40)
[2017-12-12] MEDS: Doxycycline Hyclate 100 MG CAP PO (09:41)
--- NOTE | 2017-12-12 10:24 | PDOC.CMDIS ---
- If Service Date Differs Date of service: 12/12/17 Time of Service: 10:24 LACE Index Scoring Tool - Questions: Length of Stay (in days): 4 - 6 Acuity (Admit via E.D.?): Yes E.D. Visits: 3 - Answers: Total Score: 10 Risk of Readmission: High Risk Care Management Discharge Reason for Hospitalization: Bronchititis, asthma Discharge Plan: Yandy will be discharged home today she will follow up with her primary care. She will complete a steroid taper and antibiotics. Yandy does need any addtional services at this time. She does have paperwork that needs to be completed by [employer] which provider will complete and CM will fax to her employer. Yandy will return home with her spouse at time of discharge via private car. Yandy has decided not to complete her advance directives today and will complete them at home. JOHANNE provided the packet. Patient/Family Education Needs: Discharge education, limiations and follow up plan of care. Self management and ask me three discussion. Yandy ask appropiate questions related to plan of care and follow up plan.
[2017-12-12] MEDS: guaiFENesin/CODEINE PHOSPHATE 10 ML CUP PO (11:17)
--- NOTE | 2017-12-12 11:43 | DSE_ITS ---
DS: Diagnosis Discharge Diagnosis (1) Asthma: Status: Chronic (2) Tracheobronchitis: Status: Acute (3) DVT prophylaxis: Status: Acute Discharge Plan Disposition Patient Disposition: HOME Condition: Improving Discharge Details Reason For Visit: ACUTE BRONCHITIS Admit Date/Time: 12/09/17 12:13 Admit Provider: Tyler Howe Attending Provider: Tyler Howe Primary Care Provider: Rehana Hooper Hospital Course Hospital Course: CC: Cough, Dyspnea HPI: Very pleasant 47-year-old woman with a past medical history significant for asthma, initially presented to [facility] 2 days ago with complaints of 2 weeks of unremitting cough. Mrs. Awad originally presented to the emergency department 2 days ago with a reported 2-week history of a continuous cough which causes significant burning and lightheadedness while symptomatic. Initial evaluation in the emergency department included a chest x-ray which was interpreted as a negative , and she was prescribed an antibiotic with doxycycline and an inhaler and discharged home. Despite these measures the patient's symptoms continued and progressed, leading to a repeat visit to the emergency department. A repeat chest x-ray was performed and again interpreted as negative, and other than borderline tachycardia the patient was hemodynamically stable and afebrile. However given the progression and the significance of her symptoms, as well as perceived likely acute exacerbation of her underlying asthma, the patient was referred for admission for further evaluation and treatment. At the time of admission the patient is denying any fevers or chills, but endorsing a cough that is nonproductive. She denies any GI symptoms other than some mild nausea with continued cough pain, but denies any diarrhea or vomiting. She also endorses lightheadedness and near syncope with continued coughing, and subjective sensation of dehydration. Hospital Course by Problem List: ADMITTING PROVIDER: Tyler Howe M.D. PRIMARY CARE PROVIDER: REHANA HOOPER NP DATE OF ADMIT: 12/09/17 (1) Asthma: Acute exacerbation in setting of likely infectious Bronchitis. Patient was maintained on aggressive nebs with Duonebs, Budesonide, and Levalbuterol, IV Steroids, and antitussives. Symptomatically improved by morning of discharge. CXR repeated to ensure lack of infiltrate in setting of abnormal exam - again normal. Plan on oral steroid taper, liberal use of rescue inhaler, and completion of antibiotic course of underlying bronchitis. (2) Tracheobronchitis: Will continue to treat as potentially bacterial Tracheobronchitis - continue Doxycycline, now Day #3, and complete 7 day course as an outpatient. Prednisone taper and rescue inhaler as above. Home Meds and New Rx's Prescriptions: New prednisone 10 mg tablet 10 mg PO DAILY 8 Days Qty: 34 RF: 0 Continue codeine-guaifenesin 10-100 mg/5 mL liquid 10 ml PO ONCE PRN (Reason: cough) Qty: 120 RF: 0 doxycycline hyclate 100 mg capsule 100 mg PO BID 4 Days Qty: 8 RF: 0 albuterol sulfate [Ventolin HFA] 90 mcg/actuation Hfa Aerosol Inhaler 2 puff Inhalation Q4H PRN PRN30 Days RF: 0 Discharge Instructions Instructions: Asthma (GEN), Acute Bronchitis (GEN) Additional Instructions: Please see your primary care provider within a week of discharge Please take 4 additional days of your antibiotic (Doxycycline). Stand Alone Forms: Nursing Discharge Form Activity:: No strenuous activity Equipment/Supplies:: No Equipment Needed Diet:: As Tolerated Discharge Orders Discharge Orders: Discharge Order (Routine); Ordered 12/12/17 Ordered By: Tyler Howe DS: Data Vitals/I&O Vitals and I&O: Vital Signs Temperature 37 C 12/12/17 07:40 Temperature Source Tympanic 12/12/17 07:40 Pulse 90 12/12/17 07:40 Pulse Rhythm Regular 12/12/17 09:45 Respiratory Rate 18 12/12/17 07:40 Respiratory Effort Non-Labored 12/12/17 09:45 Respiratory Depth Normal 12/12/17 09:45 Respiratory Pattern Normal 12/12/17 09:45 Blood Pressure 136/80 12/12/17 07:40 Blood Pressure Position Sitting 12/09/17 08:45 Pulse Oximetry 94 L 12/12/17 08:50 Oxygen Delivery Method Room Air 12/12/17 08:50 Oxygen Flow Rate 0 12/12/17 08:50 Pain Level 0 12/11/17 20:11 Comment 12/12/17 06:16 Intake & Output 12/11/17 12/11/17 12/12/17 11:59 23:59 11:59 Intake Total 2533.75 / 2533.75 1450 / 1450 1306.25 / 1306.25 Output Total 2200 / 2200 1300 / 1300 2800 / 2800 Balance 333.75 / 333.75 150 / 150 -1493.75 / -1493.75 Intake: IV 1843.75 / 1843.75 1030 / 1030 956.25 / 956.25 Oral 690 / 690 420 / 420 350 / 350 Output: Urine 2200 / 2200 1300 / 1300 2800 / 2800 Other: Urine Color Yellow Yellow Yellow Urine Appearance Clear Clear Clear Urine Odor Normal None None Comment Voids x 2 in hat on toilet Voiding Methods Toilet Toilet Toilet Pending studies at discharge: BILAT ENDOS OCC TUBE NEC (10/11/96) Laparoscopic supracervical hysterectomy [LSH] (01/17/11) Laparoscopic unilateral oophorectomy (01/17/11) WBC 16.43 k/cumm (4.4-10.8) H D 12/10/17 07:00 RBC 4.34 m/cumm (4.00-5.20) 12/10/17 07:00 Hgb 14.5 g/dL (12.0-15.5) 12/10/17 07:00 Hct 39.8 % (36.0-46.0) 12/10/17 07:00 MCV 91.7 fL (80-95) 12/10/17 07:00 MCH 33.4 pg (27.0-33.0) H 12/10/17 07:00 MCHC 36.4 g/dL (32.0-36.0) H 12/10/17 07:00 RDW 13.9 % (11.7-14.6) 12/10/17 07:00 Plt Count 247 x1000/uL (130-400) 12/10/17 07:00 MPV 10.5 fL (8.0-11.0) 12/10/17 07:00 Immature Gran % 0.2 12/10/17 07:00 Neutrophils % 86.8 12/10/17 07:00 Lymphocytes % 8.6 12/10/17 07:00 Monocytes % 4.3 12/10/17 07:00 Eosinophils % 0.0 12/10/17 07:00 Basophils % 0.1 12/10/17 07:00 Absolute Neutrophils 14.26 k/cumm (1.2-6.7) H 12/10/17 07:00 Absolute Lymphocytes 1.41 k/cumm (1.2-3.4) 12/10/17 07:00 Absolute Monocytes 0.71 k/cumm (0.11-0.7) H 12/10/17 07:00 Absolute Eosinophils 0.00 k/cumm (0.0-0.7) 12/10/17 07:00 Absolute Basophils 0.02 k/cumm (0.0-0.2) 12/10/17 07:00 Sodium 140 mmol/L (136-145) 12/10/17 07:00 Potassium 3.9 mmol/L (3.5-5.1) 12/10/17 07:00 Chloride 107 mmol/L (98-107) 12/10/17 07:00 Carbon Dioxide 23.3 mmol/L (21.0-32.0) 12/10/17 07:00 Anion Gap 9.7 mmol/L (3-11) 12/10/17 07:00 BUN 9 mg/dL (7-18) 12/10/17 07:00 Creatinine 0.85 mg/dL (0.55-1.02) 12/10/17 07:00 Estimated GFR/1.73 m2 >= 60.00 (mL/min/1.73m2) 12/10/17 07:00 Glucose 108 mg/dL (70-100) H 12/10/17 07:00 Lactate 0.9 mmol/L (0.6-1.4) 12/09/17 09:40 Calcium 8.6 mg/dL (8.5-10.1) 12/10/17 07:00 Total Bilirubin 0.5 mg/dL (0.2-1.0) 12/09/17 09:40 AST 23 U/L (15-37) 12/09/17 09:40 ALT 30 U/L (12-78) 12/09/17 09:40 Alkaline Phosphatase 78 U/L (46-116) 12/09/17 09:40 Total Protein 7.4 g/dL (6.4-8.2) 12/09/17 09:40 Albumin 3.6 g/dL (3.4-5.0) 12/09/17 09:40
--- NOTE | 2017-12-12 12:12 | W.PM.DS.N ---
Date of service: 12/12/17 Time of Service: 12:12 DS: Diagnosis Discharge Diagnosis (1) Asthma: Status: Chronic (2) Tracheobronchitis: Status: Acute Discharge Plan Disposition Patient Disposition: HOME Condition: Improving Discharge Details Reason For Visit: ACUTE BRONCHITIS Admit Date/Time: 12/09/17 12:13 Admit Provider: Tyler Howe Attending Provider: Tyler Howe Primary Care Provider: Rehana Hooper Hospital Course Hospital Course: CC: Cough, Dyspnea HPI: Very pleasant 47-year-old woman with a past medical history significant for asthma, initially presented to [facility] 2 days ago with complaints of 2 weeks of unremitting cough. Mrs. Awad originally presented to the emergency department 2 days ago with a reported 2-week history of a continuous cough which causes significant burning and lightheadedness while symptomatic. Initial evaluation in the emergency department included a chest x-ray which was interpreted as a negative, and she was prescribed an antibiotic with doxycycline and an inhaler and discharged home. Despite these measures the patient's symptoms continued and progressed, leading to a repeat visit to the emergency department. A repeat chest x-ray was performed and again interpreted as negative, and other than borderline tachycardia the patient was hemodynamically stable and afebrile. However given the progression and the significance of her symptoms, as well as perceived likely acute exacerbation of her underlying asthma, the patient was referred for admission for further evaluation and treatment. At the time of admission the patient is denying any fevers or chills, but endorsing a cough that is nonproductive. She denies any GI symptoms other than some mild nausea with continued cough pain, but denies any diarrhea or vomiting. She also endorses lightheadedness and near syncope with continued coughing, and subjective sensation of dehydration. Hospital Course by Problem List: ADMITTING PROVIDER: Tyler Howe M.D. PRIMARY CARE PROVIDER: REHANA HOOPER NP DATE OF ADMIT: 12/09/17 (1) Asthma: Acute exacerbation in setting of likely infectious Bronchitis. Patient was maintained on aggressive nebs with Duonebs, Budesonide, and Levalbuterol, IV Steroids, and antitussives. Symptomatically improved by morning of discharge. CXR repeated to ensure lack of infiltrate in setting of abnormal exam - again normal. Plan on oral steroid taper, liberal use of rescue inhaler, and completion of antibiotic course of underlying bronchitis. (2) Tracheobronchitis: Will continue to treat as potentially bacterial Tracheobronchitis - continue Doxycycline, now Day #3, and complete 7 day course as an outpatient. Prednisone taper and rescue inhaler as above. Home Meds and New Rx's Prescriptions: New prednisone 10 mg tablet 10 mg PO DAILY 8 Days Qty: 34 RF: 0 Continue codeine-guaifenesin 10-100 mg/5 mL liquid 10 ml PO ONCE PRN (Reason: cough) Qty: 120 RF: 0 doxycycline hyclate 100 mg capsule 100 mg PO BID 4 Days Qty: 8 RF: 0 albuterol sulfate [Ventolin HFA] 90 mcg/actuation Hfa Aerosol Inhaler 2 puff Inhalation Q4H PRN PRN30 Days RF: 0 Discharge Instructions Instructions: Asthma (GEN), Acute Bronchitis (GEN) Additional Instructions: Please see your primary care provider within a week of discharge Please take 4 additional days of your antibiotic (Doxycycline). Stand Alone Forms: Nursing Discharge Form Activity:: No strenuous activity Equipment/Supplies:: No Equipment Needed Diet:: As Tolerated Discharge Orders Discharge Orders: Discharge Order (Routine); Ordered 12/12/17 Ordered By: Tyler Howe Exam Narrative Exam Narrative: General: Patient appears vastly improved, AAOX3, NAD Neck: Supple CV: Regular, borderline tachycardic, S1S2, No rubs, murmurs, or gallops. Pulmonary: Vastly improved rhonchorous breath sounds with improved wheezing. Air entry has improved significantly. Questionable mild area of crackles and decreased breath sounds in the left base. Abdomen: + Bowel Sounds, soft, nontender, nondistended Vascular: No lower extremity edema Psych: Normal mood and affect. DS: Data Vitals/I&O Vitals and I&O: Vital Signs Temperature 37 C 12/12/17 07:40 Temperature Source Tympanic 12/12/17 07:40 Pulse 90 12/12/17 07:40 Pulse Rhythm Regular 12/12/17 09:45 Respiratory Rate 18 12/12/17 07:40 Respiratory Effort Non-Labored 12/12/17 09:45 Respiratory Depth Normal 12/12/17 09:45 Respiratory Pattern Normal 12/12/17 09:45 Blood Pressure 136/80 12/12/17 07:40 Blood Pressure Position Sitting 12/09/17 08:45 Pulse Oximetry 94 L 12/12/17 08:50 Oxygen Delivery Method Room Air 12/12/17 08:50 Oxygen Flow Rate 0 12/12/17 08:50 Pain Level 0 12/11/17 20:11 Comment 12/12/17 06:16 Intake & Output 12/11/17 12/12/17 12/12/17 23:59 11:59 23:59 Intake Total 1450 / 1450 1306.25 / 1306.25 Output Total 1300 / 1300 2800 / 2800 Balance 150 / 150 -1493.75 / -1493.75 Intake: IV 1030 / 1030 956.25 / 956.25 Oral 420 / 420 350 / 350 Output: Urine 1300 / 1300 2800 / 2800 Other: Urine Color Yellow Yellow Urine Appearance Clear Clear Urine Odor None None Voiding Methods Toilet Toilet Pending studies at discharge: BILAT ENDOS OCC TUBE NEC (10/11/96) Laparoscopic supracervical hysterectomy [LSH] (01/17/11) Laparoscopic unilateral oophorectomy (01/17/11) WBC 16.43 k/cumm (4.4-10.8) H D 12/10/17 07:00 RBC 4.34 m/cumm (4.00-5.20) 12/10/17 07:00 Hgb 14.5 g/dL (12.0-15.5) 12/10/17 07:00 Hct 39.8 % (36.0-46.0) 12/10/17 07:00 MCV 91.7 fL (80-95) 12/10/17 07:00 MCH 33.4 pg (27.0-33.0) H 12/10/17 07:00 MCHC 36.4 g/dL (32.0-36.0) H 12/10/17 07:00 RDW 13.9 % (11.7-14.6) 12/10/17 07:00 Plt Count 247 x1000/uL (130-400) 12/10/17 07:00 MPV 10.5 fL (8.0-11.0) 12/10/17 07:00 Immature Gran % 0.2 12/10/17 07:00 Neutrophils % 86.8 12/10/17 07:00 Lymphocytes % 8.6 12/10/17 07:00 Monocytes % 4.3 12/10/17 07:00 Eosinophils % 0.0 12/10/17 07:00 Basophils % 0.1 12/10/17 07:00 Absolute Neutrophils 14.26 k/cumm (1.2-6.7) H 12/10/17 07:00 Absolute Lymphocytes 1.41 k/cumm (1.2-3.4) 12/10/17 07:00 Absolute Monocytes 0.71 k/cumm (0.11-0.7) H 12/10/17 07:00 Absolute Eosinophils 0.00 k/cumm (0.0-0.7) 12/10/17 07:00 Absolute Basophils 0.02 k/cumm (0.0-0.2) 12/10/17 07:00 Sodium 140 mmol/L (136-145) 12/10/17 07:00 Potassium 3.9 mmol/L (3.5-5.1) 12/10/17 07:00 Chloride 107 mmol/L (98-107) 12/10/17 07:00 Carbon Dioxide 23.3 mmol/L (21.0-32.0) 12/10/17 07:00 Anion Gap 9.7 mmol/L (3-11) 12/10/17 07:00 BUN 9 mg/dL (7-18) 12/10/17 07:00 Creatinine 0.85 mg/dL (0.55-1.02) 12/10/17 07:00 Estimated GFR/1.73 m2 >= 60.00 (mL/min/1.73m2) 12/10/17 07:00 Glucose 108 mg/dL (70-100) H 12/10/17 07:00 Lactate 0.9 mmol/L (0.6-1.4) 12/09/17 09:40 Calcium 8.6 mg/dL (8.5-10.1) 12/10/17 07:00 Total Bilirubin 0.5 mg/dL (0.2-1.0) 12/09/17 09:40 AST 23 U/L (15-37) 12/09/17 09:40 ALT 30 U/L (12-78) 12/09/17 09:40 Alkaline Phosphatase 78 U/L (46-116) 12/09/17 09:40 Total Protein 7.4 g/dL (6.4-8.2) 12/09/17 09:40 Albumin 3.6 g/dL (3.4-5.0) 12/09/17 09:40
== END 2017-12-12 14:30 | disposition home or self-care (01) | DRG 202 ==
LOC: ER 12:50 → MS 14:10
PROVIDERS: Admitting Provider Internal Medicine; Emergency Provider Student in an Organized Health Care Education/Training Program; Visit Provider Internal Medicine
DX: J20.9 Acute bronchitis, unspecified (principal); J45.901 Unspecified asthma with (acute) exacerbation; J45.909 Unspecified asthma, uncomplicated
CPT/HCPCS: 36415; 80048; 80053; 94640; 96360; 99219; 99232; 99239; 99285; J1650; 71046; 83605; 85025; 99225; 99284; G0378; J7512; J7613; J7614; J7620; J7626

== ENCOUNTER 2017-12-19 02:48 | Outpatient (CLI) | payer BC, SELFPAY ==
[2017-12-19 13:03] LABS: Abs Immature Grans 0.03 k/cumm (0.0-0.09); Absolute Basophil Count 0.01 k/cumm (0.0-0.2); Absolute Eosinophil Count 0.44 k/cumm (0.0-0.7); Basophils % 0.1; Eosinophils % 3.2; HCT 47.1 % (36.0-46.0); HGB 15.7 g/dL (12.0-15.5); Immature Grans % 0.2; Lymphocytes % 19.2; Mean Corp. HGB Concentration 33.3 g/dL (32.0-36.0); Mean Corpuscular Hemoglobin 29.8 pg (27.0-33.0); Mean Corpuscular Volume 89.4 fL (80-95); Mean Platelet Volume 11.1 fL (8.0-11.0); Monocytes % 6.6; Neutrophils % 70.7; Platelet Count 247 x1000/uL (130-400); RBC 5.27 m/cumm (4.00-5.20); RBC Distribution Width 14.2 % (11.7-14.6); White Blood Cell Count 13.73 k/cumm (4.4-10.8)
[2017-12-19 13:07] LABS: Absolute Lymphocyte Count 2.64 k/cumm (1.2-3.4); Absolute Monocyte Count 0.91 k/cumm (0.11-0.7); Absolute Neutrophil Count 9.71 k/cumm (1.2-6.7)
[2017-12-19 13:33] LABS: ALT 25 U/L (12-78); AST 11 U/L (15-37); Albumin 3.1 g/dL (3.4-5.0); Alkaline Phosphatase 88 U/L (46-116); Anion Gap 10.9 mmol/L (3-11); BUN 14 mg/dL (7-18); Bilirubin, Total 0.6 mg/dL (0.2-1.0); CO2 24.1 mmol/L (21.0-32.0); CREATININE 0.97 mg/dL (0.55-1.02); Calcium 8.1 mg/dL (8.5-10.1); Chloride 105 mmol/L (98-107); Glucose 95 mg/dL (70-100); Sodium 140 mmol/L (136-145)
[2017-12-19 14:56] LABS: ESR 9 MM/HR (0-20)
== END 2017-12-19 03:08 ==
PROVIDERS: Visit Provider Internal Medicine
DX: J40 Bronchitis, not specified as acute or chronic (principal); J45.909 Unspecified asthma, uncomplicated
CPT/HCPCS: 36415; 80053; 85652; 85025

== ENCOUNTER 2017-12-31 10:24 | Outpatient (CLI) | payer BC, SELFPAY ==
[2017-12-31 12:42] LABS: Abs Immature Grans 0.02 k/cumm (0.0-0.09); Absolute Basophil Count 0.03 k/cumm (0.0-0.2); Absolute Eosinophil Count 0.13 k/cumm (0.0-0.7); Absolute Lymphocyte Count 3.23 k/cumm (1.2-3.4); Absolute Monocyte Count 0.59 k/cumm (0.11-0.7); Absolute Neutrophil Count 7.15 k/cumm (1.2-6.7); Basophils % 0.3; Eosinophils % 1.2; HCT 47.1 % (36.0-46.0); HGB 15.5 g/dL (12.0-15.5); Immature Grans % 0.2; Lymphocytes % 28.9; Mean Corp. HGB Concentration 32.9 g/dL (32.0-36.0); Mean Corpuscular Hemoglobin 29.7 pg (27.0-33.0); Mean Corpuscular Volume 90.2 fL (80-95); Mean Platelet Volume 10.7 fL (8.0-11.0); Monocytes % 5.3; Neutrophils % 64.1; Platelet Count 211 x1000/uL (130-400); RBC 5.22 m/cumm (4.00-5.20); RBC Distribution Width 14.4 % (11.7-14.6); White Blood Cell Count 11.16 k/cumm (4.4-10.8)
== END 2017-12-31 10:44 ==
PROVIDERS: Visit Provider Nurse Practitioner Family
DX: J18.9 Pneumonia, unspecified organism (principal)
CPT/HCPCS: 36415; 85025

== ENCOUNTER 2018-01-29 15:12 | Outpatient (CLI) | payer BC, SELFPAY ==
--- NOTE | 2018-01-29 12:54 | DI.RAD_ITS ---
SYMPTOMS/DIAGNOSIS: DECREASED BREATH SOUNDS, S/P PNEUMONIA, SUDDEN WORSENING PA AND LATERAL CHEST: The heart is normal in size. The lungs are clear. The mediastinal structures and pleura appear intact. CONCLUSION: Normal chest.
== END 2018-01-29 15:32 ==
PROVIDERS: PCP Student in an Organized Health Care Education/Training Program; Visit Provider Student in an Organized Health Care Education/Training Program
DX: R09.89 Other specified symptoms and signs involving the circulatory and respiratory systems (principal); Z87.01 Personal history of pneumonia (recurrent)
CPT/HCPCS: 71046

== ENCOUNTER 2018-03-25 13:48 | Outpatient (CLI) | payer BC, SELFPAY ==
--- NOTE | 2018-03-25 11:40 | DI.RAD_ITS ---
SYMPTOM/DIAGNOSIS: COUGH, PLEURITIC PAIN PA AND LATERAL CHEST: Comparison is made with 01/29/18. The heart is normal in size. The lungs are clear. The mediastinal structures and pleura appear intact. CONCLUSION: Normal chest.
== END 2018-03-25 14:08 ==
PROVIDERS: PCP Student in an Organized Health Care Education/Training Program; Visit Provider Student in an Organized Health Care Education/Training Program
DX: R05 Cough (principal); R07.81 Pleurodynia
CPT/HCPCS: 71046

== ENCOUNTER 2018-07-09 03:05 | Outpatient (CLI) | payer BC, SELFPAY ==
--- NOTE | 2018-07-09 | PFT_ITS ---
PULMONARY FUNCTION TEST REPORT Patient - Yandy Awad DATE OF SERVICE July 09, 2018 REQUESTING PROVIDER Ayse Montenegro M.D. INTERPRETATION OF STUDY Spirometry shows no evidence of obstructive airways disease. No bronchodilator testing was carried out. LUNG VOLUMES - Lung volumes show no evidence of restriction. DIFFUSION CAPACITY- Normal. AIRWAY RESISTANCE - Normal. IMPRESSION Overall normal pulmonary function study. Clinical correlation recommended. Anshul Woodward DD 07/09/2018 DT 07/10/2018 METHACHOLINE BRONCHOPROVOCATION CHALLENGE TEST Patient - Yandy Awad DATE OF SERVICE July 09, 2018 REQUESTING PROVIDER Ayse Montenegro M.D. Good patient effort after normal spirometry Methacholine bronchoprovocation testing was carried out up to a Methacholine concentration of 4 mg/ml at which point the patient had a 23% drop in FEV1. IMPRESSION Strongly positive Methacholine challenge test. Clinical correlation recommended. Ayse Montenegro M.D. Chavez POTTER 07/09/2018 DT 07/10/2018
[2018-07-09] MEDS: Methacholine 100 MG VIAL IH (14:59)
[2018-07-09] MEDS: Albuterol HFA 18 GM 200 PUFF INH IH (15:00)
[2018-07-09] MEDS: Inhaler, Assist Device 1 EACH MC (15:00)
== END 2018-07-09 03:25 ==
PROVIDERS: PCP Student in an Organized Health Care Education/Training Program; Visit Provider Internal Medicine
DX: J45.20 Mild intermittent asthma, uncomplicated (principal); R05 Cough; R06.09 Other forms of dyspnea; R07.89 Other chest pain
CPT/HCPCS: 94060; 94150; 94726; 94729; 95070; 94010; J7674

== ENCOUNTER 2018-08-19 12:02 | Outpatient (REF) | payer BC, SELFPAY ==
--- NOTE | 2018-08-19 08:45 | PAPFT_PTH ---
PATIENT: Yandy Awad LOC: [facility] U#:[id number] AGE/SX: 47/F ROOM: RE08/19/[address]: Carolyn Cavazos DO : 1970 BED: DIS: 08/19/2018 SPEC #: [id number] RECD: 08/20/18 12:39 STATUS: ENZO REAlina #: [id number] APOORVA: 08/19/18 08:[address]: Carolyn Cavazos DEPT: [facility] Cytology RECD BY: Ivana Navarrete Tissues: 1 - CX/ENDOCX FOR PAP SMEARS Procedures: PAP THIN PREP/UVM Screening Comments: [id number] (UNSATISFACTORY FOR EVALUATION)
== END 2018-08-19 12:22 ==
LOC: LBN 12:02
PROVIDERS: PCP Student in an Organized Health Care Education/Training Program; Visit Provider Student in an Organized Health Care Education/Training Program
DX: Z12.4 Encounter for screening for malignant neoplasm of cervix (principal)
CPT/HCPCS: 88142

== ENCOUNTER 2019-04-15 08:15 | Outpatient (CLI) | payer BC, SELFPAY ==
--- NOTE | 2019-04-15 08:33 | DI.RAD_ITS ---
EXAM: XR FOOT LT COMPLETE CLINICAL HISTORY: PAIN TECHNIQUE: COMPARISON: LEFT FOOT COMPLETE from 06/03/2016 FINDINGS: Two views were obtained. There is a [id number] hallux valgus deformity with slight secondary d egenerative changes at the 1st MTP joint. There are degenerative changes at the dorsal aspect of the talonavicular joint, small osseous fragment may be present which could represent old injury or varia nt bony development. No other significant abnormality seen. IMPRESSION:
== END 2019-04-15 08:35 ==
LOC: DIORS 08:16
PROVIDERS: PCP Student in an Organized Health Care Education/Training Program; Visit Provider Student in an Organized Health Care Education/Training Program
DX: M79.672 Pain in left foot (principal); M20.12 Hallux valgus (acquired), left foot; M19.072 Primary osteoarthritis, left ankle and foot
CPT/HCPCS: 73630

== ENCOUNTER 2019-11-07 11:16 | Emergency (ER) | payer BC, SELFPAY ==
[2019-11-07] VITALS (9 sets, daily range): BP systolic 125–132; BP diastolic 80–87; PULSE 74–87; RESP 13–17; TEMP 36.5; O2SAT 95–99
--- NOTE | 2019-11-07 11:15 | RT.EKG_ITS ---
APPROVED REPORT Exam: Resting ECG Patient Location: E HR:77 bpm ECG Measurements Heart Rate 77 AXIS WI 126 P 4 QRSd 86 QRS 31 QT 361 T 6 QTc 409 Conclusion Sinus rhythm...normal P axis, V-rate 60- 99. No STEMI, nondiagnostic.
--- NOTE | 2019-11-07 11:24 | W.ED.GENAD ---
Discharge Plan Disposition Patient Disposition: HOME Condition: Good Discharge Details Chief Complaint: Chest Pain Clinical Impression: Chest wall pain Primary Care Provider: Carolyn Cavazos ED Provider: Kayley Gurrola Home Meds and New Rx's Prescriptions: Continued (DME) compressor, for nebulizer device See Dose Instructions .ROUTE .MEDSUPPLY Qty: 1 RF: 0 fluticasone propion-salmeterol [Advair Diskus] 250-50 mcg/dose blister with device 1 inh IH BID Qty: 1 RF: 2 ipratropium-albuterol 0.5 mg-3 mg(2.5 mg base)/3 mL solution for nebulization 3 ml IH QID Qty: 180 RF: 3 omeprazole 40 mg capsule,delayed release(DR/EC) 40 mg PO BID RF: 0 Discharge Instructions Instructions: Chest Wall Pain (ED) Additional Instructions: Drink plenty of fluids and get plenty of rest. Alternate tylenol and motrin as needed and directed for pain. Use the Lidoderm patch as needed directed for pain. Take the Ativan as needed and directed for sleep. Follow-up with your primary care doctor in 1 week for reevaluation and for referral for outpatient stress test if symptoms persist or worsen. Return to the emergency department with any worsening or new concerning symptoms. Discharge Data Discharge Physician: Kayley Gurrola Medical Decision Making 1140 -- 49-year-old female presents with left-sided chest tightness with radiation to her left arm and back. Symptoms intermittent for the past 3 days, but worse today. EKG on arrival notes a rate of 77, sinus with no acute ST-T wave ischemic changes. She has reproducible left chest pain with tenderness to palpation. History and presentation consistent with PE, dissection and doubt ACS. She admits to significant amount of stress at home with her who has a history of prostate cancer. She states she has not been sleeping at night. Suspect musculoskeletal, stress, anxiety. Will place Lidoderm patch and give a dose of Toradol, refer for labs and imaging. 1300 --imaging reviewed and unremarkable. Troponin negative. CT chest negative for acute findings. Will plan for repeat troponin and EKG. 1345 --pt reassessed and she feels much better. Pt agreeable to stay for a 2nd troponin and ekg. 1500 --repeat troponin negative. Repeat EKG unchanged. Patient denies any symptoms and feels good to go home. We will send home with a few tabs of Ativan to help with sleep due to her increased stress and insomnia lately. Advised to follow up with the primary care doctor for re-evaluation. Usual and customary return precautions given prior to discharge. Medical Records Medical records reviewed: Yes I reviewed the patient's medical records. Imaging Data Radiologic Study: Radiologist's impression: CT Angiography Chest With Contrast Exam date and time: 11/07/2019 12:40 PM Age: 49 years old Clinical indication: Other: L sided chest pain, R/O dissection, pneumonia TECHNIQUE: Imaging protocol: Computed tomographic angiography of the chest with intravenous contrast. 3D rendering (Not supervised by radiologist): MIP and/or 3D reconstructed images were created by the technologist. Radiation optimization: All CT scans at this facility use at least one of these dose optimization techniques: automated exposure control; mA and/or kV adjustment per patient size (includes targeted exams where dose is matched to clinical indication); or iterative reconstruction. Contrast material: OMNIPAQUE 350; Contrast volume: 100 ml; Contrast route: INTRAVENOUS (IV); COMPARISON: CR XR CHEST 2V PA LATERAL 03/25/2018 11:42 AM FINDINGS: Pulmonary arteries: No evidence of pulmonary embolus to the segmental level. Aorta: No aneurysm of the aorta. No dissection of the aorta. Lungs: Unremarkable. No consolidation. No masses. Pleural space: Unremarkable. No pneumothorax. No pleural effusion. Heart: Unremarkable. No cardiomegaly. No pericardial effusion. Mediastinal space: Small hiatal hernia Lymph nodes: Unremarkable. No enlarged lymph nodes. Gallbladder and bile ducts: Gallstones in the gallbladder. Bones/joints: Unremarkable. No acute fracture. Soft tissues: Unremarkable. IMPRESSION: 1. No evidence of pulmonary embolus to the segmental level. 2. No aneurysm of the aorta. 3. No dissection of the aorta. 4. Gallstones in the gallbladder. ECG Data Attestation: I personally reviewed and interpreted this ECG (s) as follows: Interpretation: #1 --Rate of 77, sinus, no acute ST elevation or depression. DE 126. QRS 86. QTc 409. HPI General Mode of arrival: ambulatory. Date/Time Provider Initiated Documentation: 11/07/19 11:22. Limitations to Documentation: no limitations. Information obtained by: patient. HPI Narrative: Patient is a 49-year-old female with a history of asthma who presents with left-sided chest pain for the past few days, worse today with radiation to her left arm and to her back. She describes the pain as pressure, tightness that is currently 4/10. She denies any aggravating or alleviating factors. She denies any fever, cough, shortness of breath, nausea, vomiting or dizziness. She denies any known injury. She denies any recent travel, recent sick contacts, recent surgery. Related Data Home Medications Medication Instructions Recorded Confirmed compressor, for nebulizer #1 each 01/01/18 04/15/19 ipratropium 0.5 mg-albuterol 3 mg 3 ml IH QID #180 ml 01/06/18 11/07/19 (2.5 mg base)/3 mL nebulization soln fluticasone 250 mcg-salmeterol 50 1 inh IH BID #1 each 05/27/18 11/07/19 mcg/dose blistr powdr for inhalation omeprazole 40 mg capsule,delayed 40 mg PO BID cap 09/18/18 11/07/19 release Previous Rx's Medication Instructions Recorded compressor, for nebulizer #1 each 01/01/18 ipratropium 0.5 mg-albuterol 3 mg 3 ml IH QID #180 ml 01/06/18 (2.5 mg base)/3 mL nebulization soln fluticasone 250 mcg-salmeterol 50 1 inh IH BID #1 each 05/27/18 mcg/dose blistr powdr for inhalation Allergies Allergy/AdvReac Type Severity Reaction Status Date / Time No Known Allergies Allergy Verified 11/07/19 11:28 General APOLINAR: 3 Review of Systems All systems reviewed & are unremarkable except as noted in HPI and below Constitutional Constitutional: Reports as per HPI, Denies chills and Denies fever(s) Eyes Eyes: Denies blurry vision ENT Ears, Nose, Mouth, and Throat: Denies dizziness, Denies sore throat and Denies throat swelling Cardiovascular Cardiovascular: Reports chest pain and Denies dyspnea Respiratory Respiratory: Denies cough and Denies dyspnea Gastrointestinal Gastrointestinal: Denies abdominal pain, Denies diarrhea and Denies vomiting Genitourinary Genitourinary: Denies hematuria and Denies dysuria Musculoskeletal Musculoskeletal: Denies back pain and Denies numbness Integumentary/Breasts Skin/Breast: Denies lesions and Denies rash Neurologic Neurologic: Denies dizziness, Denies localized weakness and Denies numbness Allergic/Immunologic Allergic/Immunologic: Denies throat swelling [facility] Medical History (Updated 11/07/19 @ 15:11 by Kayley Gurrola DO) Asthma (Chronic) Severe exacerbation (-12/2017) after years of dormant asthma .. 02/25/18: Pulm referral to re-eval asthma and Rx/Tx plan going forward. See 06/19/18 Pulm Consult. Mild Intermittent Asthma with sever/prolonged exacerbation Dx. Increasd Advair dose x 1 week; PFTs ordered .. maybe Sing/SPiriva. CT if not @ baseline soon. [ ] ik, 06/2018 Cough (Acute) Dermatitis (Acute 05/13/16) DVT prophylaxis (Acute) Fatigue (Acute 02/16/07) Hx fatigue, borderline anemia. Current fatigue seems 2' asthma, SOB, bronchitis, tachycardia. No anemia per Dec 2017 labs. Gastroenteritis (Acute) Goiter (Suspected 02/16/07) Hx of recurrent pneumonia (Acute ~12/2017) Injury of left foot (Resolved 05/20/16) Menorrhagia (Chronic 01/16/11) Tracheobronchitis (Acute) Seen in ED, 11/2017, methylprednisolone IM. Finish oral prednisone 2 doses. Continue inhaler as needed. Add Augmentin 500/125 BID. Call if worsening or return to ED. Rtd/Hospitalized. Seen in clinic x3 with additional ABx, Steroids. Out of work from 12/07 to est 01/19/18. Surgical History Hx of endoscopy (Acute ~11/2018) Hysterectomy (Inactive 01/17/11) [facility]-DR. STEVENSON Oophrectomy, Left (Inactive 01/17/11) [facility]; DR. 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 Sexually active: Yes Current gender identity: female What type of physical activity do you participate in: walking Duration: 30-45 minutes/day Frequency: 5-6 times per week Seatbelt use: always Water heater temp set <120 deg: Yes Working smoke detector in home: Yes Fire extinguisher in home: Yes Carbon monox detector in home: Yes Firearms in home: Yes Firearms unloaded and locked: Yes Do you feel safe at home: Yes Do you feel safe in your relationship?: Yes Exam Const General: cooperative, healthy appearing and no acute distress HENCA Head: normal to inspection Face and sinus: normal facial exam Eyes General: appearance normal, both eyes and all related structures EOM: EOM intact bilaterally Neck Neck: normal visual inspection and No submandibular swelling Lymphatic: no lymphadenopathy noted Chest Chest: normal inspection of the chest Chest/axillae images: 1. Tenderness to palpation of left anterior chest. No rash, lesions, edema, ecchymosis, erythema, crepitus or step-off. Resp Effort & Inspection: normal respiratory effort and able to speak in complete sentences Auscultation: clear to auscultation bilaterally Cardio Rate: regular rate Rhythm: regular rhythm GI Inspection: normal to inspection Palpation: soft, not firm, not rigid and nontender Auscultation: normal bowel sounds Back/Spine/Pelvis Thoracic/Lumbar Spine: thoracic and lumbar spine normal to inspection Skin General skin exam: no rashes or lesions noted Neuro General: patient alert, patient awake and patient oriented x3 Cognition: normal cognition Speech: speech normal Motor: muscle tone normal throughout Sensory Exam: no sensory deficits noted Extrem General: normal to inspection, full ROM, capillary refill normal, no calf tenderness bilaterally and no edema Psych Appearance: grossly normal Mental Status: mental status grossly normal Speech and Movement: speech and movement normal Affect: normal affect
[2019-11-07 11:45] LABS: Abs Immature Grans 0.01 10^3/uL (0.0-0.06); Absolute Basophil Count 0.03 10^3/uL (0.0-0.2); Absolute Eosinophil Count 0.18 10^3/uL (0.0-0.7); Absolute Lymphocyte Count 1.62 10^3/uL (1.2-3.4); Absolute Monocyte Count 0.44 10^3/uL (0.1-0.8); Absolute Neutrophil Count 4.25 10^3/uL (1.2-6.7); Basophils % 0.5; Eosinophils % 2.8; HCT 46.6 % (36.0-46.0); HGB 15.4 g/dL (11.2-15.7); Immature Grans % 0.2; Lymphocytes % 24.8; MCH 29.2 pg (27.0-33.0); MCV 88.3 fL (80-95); MPV 11.1 fL (8.0-11.0); Monocytes % 6.7; Nucleated RBC 0 %; Platelet Count 219 10^3/uL (130-400); RBC 5.28 10^6/uL (3.93-5.22); RDW-SD 41.9 fL; WBC 6.53 10^3/uL (4.4-10.8)
[2019-11-07 11:58] LABS: Prothrombin Time 9.8 sec (9.3-11.0)
[2019-11-07 12:06] LABS: Lipase 96 U/L (73-393)
[2019-11-07 12:11] LABS: ALT 35 U/L (14-59); AST 26 U/L (15-37); Albumin 3.8 g/dL (3.4-5.0); Alkaline Phosphatase 87 U/L (46-116); Anion Gap 9.3 mmol/L (3-11); BUN 13 mg/dL (7-18); Bilirubin, Total 0.4 mg/dL (0.2-1.0); CO2 25.7 mmol/L (21.0-32.0); CREATININE 0.86 mg/dL (0.55-1.02); Calcium 9.3 mg/dL (8.5-10.1); Chloride 105 mmol/L (98-107); Glucose 94 mg/dL (74-106); Potassium 4.5 mmol/L (3.5-5.1); Sodium 140 mmol/L (136-145); Total Protein 6.9 g/dL (6.4-8.2)
[2019-11-07 12:13] LABS: Troponin I < 0.05 ng/mL (<0.06)
[2019-11-07] MEDS: Omnipaque 350 MG/ML 100 ML BTL IJ (12:32)
[2019-11-07] MEDS: Ketorolac 30 MG/ML VIAL IVP (12:33)
[2019-11-07] MEDS: Lidocaine 5% Patch 1 PATCH TP (12:33)
[2019-11-07] MEDS: Normal Saline 1,000 ML 1000 ML IV (12:34)
[2019-11-07] MEDS: Normal Saline - Diluent 50 ML VIAL IV (12:47)
[2019-11-07] MEDS: Normal Saline Flush 10 ML SYR IVP (12:48)
--- NOTE | 2019-11-07 12:50 | DI.CT_ITS ---
EXAM: CT THORAX CTA CLINICAL HISTORY: L sided chest pain, r/o dissection, pneumonia TECHNIQUE: COMPARISON: No exams were available for comparison FINDINGS: CT angiography of the chest was performed with intravenous infusion 100 cc of Omnipaque 350. Images obtained through the upper abdomen show hepatic steatosis and cholelithiasis. No mediastinal adenopathy or mass. Lungs are clear. No pleural effusion or pneumothorax. No evidence of pulmonary embolic disease. No thoracic aortic aneurysm or dissection. Tracheobronchial tree appears intact. IMPRESSION: No evidence of pulmonary embolic disease or acute pulmonary consolidation. Note is made of hepatic steatosis and cholelithiasis. RADIATION DOSE DELIVERED: 587.36mGy.cm Total DLP
--- NOTE | 2019-11-07 12:58 | DI.VRAD_ITS ---
PROCEDURE INFORMATION: Exam: CT Angiography Chest With Contrast Exam date and time: 11/07/2019 12:40 PM Age: 49 years old Clinical indication: Other: L sided chest pain, R/O dissection, pneumonia TECHNIQUE: Imaging protocol: Computed tomographic angiography of the chest with intravenous contrast. 3D rendering (Not supervised by radiologist): MIP and/or 3D reconstructed images were created by the technologist. Radiation optimization: All CT scans at this facility use at least one of these dose optimization techniques: automated exposure control; mA and/or kV adjustment per patient size (includes targeted exams where dose is matched to clinical indication); or iterative reconstruction. Contrast material: OMNIPAQUE 350; Contrast volume: 100 ml; Contrast route: INTRAVENOUS (IV); COMPARISON: CR XR CHEST 2V PA LATERAL 03/25/2018 11:42 AM FINDINGS: Pulmonary arteries: No evidence of pulmonary embolus to the segmental level. Aorta: No aneurysm of the aorta. No dissection of the aorta. Lungs: Unremarkable. No consolidation. No masses. Pleural space: Unremarkable. No pneumothorax. No pleural effusion. Heart: Unremarkable. No cardiomegaly. No pericardial effusion. Mediastinal space: Small hiatal hernia Lymph nodes: Unremarkable. No enlarged lymph nodes. Gallbladder and bile ducts: Gallstones in the gallbladder. Bones/joints: Unremarkable. No acute fracture. Soft tissues: Unremarkable. IMPRESSION: 1. No evidence of pulmonary embolus to the segmental level. 2. No aneurysm of the aorta. 3. No dissection of the aorta. 4. Gallstones in the gallbladder. Dictated and Authenticated by: Phu Ramos MD. Ordering:PABLO Zaldivar MD
--- NOTE | 2019-11-07 13:15 | RT.EKG_ITS ---
APPROVED REPORT Exam: Resting ECG Patient Location: E HR:68 bpm ECG Measurements Heart Rate 68 AXIS RI 151 P 7 QRSd 82 QRS 25 QT 399 T 5 QTc 424 Conclusion Sinus rhythm...normal P axis, V-rate 60- 99 Low voltage, precordial leads...precordial leads <1.0mV. T wave inversion in lead III. No STEMI, nondiagnostic.
[2019-11-07 14:53] LABS: Troponin I < 0.05 ng/mL (<0.06)
== END 2019-11-07 15:50 | disposition home or self-care (01) ==
PROVIDERS: Emergency Provider Physician Assistant; PCP Student in an Organized Health Care Education/Training Program
DX: R07.89 Other chest pain (principal); G47.00 Insomnia, unspecified
CPT/HCPCS: 71275; 80053; 83690; 93005; 96361; 96374; 99285; 83735; 84484; 85025; 85610; 85730; 93010; 99284; J1885; J3490

== ENCOUNTER 2019-11-16 07:06 | Outpatient (CLI) | payer BC, SELFPAY ==
[2019-11-18 10:56] LABS: Patient Race White; SARS-CoV-2 Specimen Source Nasopharynx
[2019-11-18 10:59] LABS: Method Summary See Comments; SARS-CoV-2 RNA Undetected (Undetected)
== END 2019-11-16 07:26 ==
PROVIDERS: PCP Student in an Organized Health Care Education/Training Program; Visit Provider Nurse Practitioner Adult Health
DX: Z11.59 Encounter for screening for other viral diseases (principal)
CPT/HCPCS: U0003

== ENCOUNTER 2020-01-25 07:42 | Outpatient (CLI) | payer BC, SELFPAY ==
[2020-01-29 14:56] LABS: Patient Race White; SARS-CoV-2 RNA Undetected (Undetected); SARS-CoV-2 Specimen Source Nasal
== END 2020-01-25 08:02 ==
PROVIDERS: PCP Student in an Organized Health Care Education/Training Program; Visit Provider Family Medicine
DX: R05 Cough (principal)
CPT/HCPCS: U0003

== ENCOUNTER 2020-11-30 16:44 | Outpatient (REF) | payer OTHER, SELFPAY ==
--- NOTE | 2020-11-30 13:15 | PAPFT_PTH ---
PATIENT: Yandy Awad LOC: [facility] U#:[id number] AGE/SX: 50/F ROOM: RE11/30/[address]: INGRID Cano : 1970 BED: DIS: 11/30/2020 SPEC #: [id number] RECD: 11/30/20 18:30 STATUS: MAURIQuan REAlina #: [id number] APOORVA: 11/30/20 13:[address]: Elvia Herrmann DEPT: [facility] Cytology RECD BY: Ivana Navarrete ENTERED: 11/30/20 18:31 SP TYPE: PAPFT OTHR DR: Carolyn Cavazos, DO Tissues: 1 - CX/ENDOCX FOR PAP SMEARS Procedures: PAP THIN PREP/[facility] Screening HPV DNA PROBE Comments: [id number]
== END 2020-11-30 16:45 | disposition home or self-care (01) ==
LOC: LBN 16:44
PROVIDERS: PCP Student in an Organized Health Care Education/Training Program; Visit Provider Nurse Practitioner Family
DX: Z12.4 Encounter for screening for malignant neoplasm of cervix (principal); Z11.51 Encounter for screening for human papillomavirus (HPV)
CPT/HCPCS: 88142; 87624

== ENCOUNTER 2020-12-11 02:23 | Outpatient (CLI) | payer OTHER, SELFPAY ==
--- NOTE | 2020-12-11 12:30 | DI.MAMMO_ITS ---
Exam(s) MAMMO SCREENING EXAM: MAMMO SCREENING CLINICAL HISTORY: screening. TECHNIQUE: Bilateral full field digital CC and MLO mammographic images were obtained with 3D tomosyn thesis and utilizing computer aided detection (CAD). COMPARISON: Prior mammograms dating back to 2010, the most recent being October 2015. FINDINGS: There are no CAD designations. No new significant radiograph findings in left breast. In the right breast on 3D imaging there is a round 3 millimeter nodule seen medial of center, 9 cm in from the nipple. No malignant-appearing microcalcification groups region nor elsewhere in either br east. There is no significant architectural distortion nor skin thickening-retraction. IMPRESSION: No radiographic evidence of malignancy in left breast. Small 3 millimeter noncalcified right breast nodule. Ultrasound recommended to determine if this is solid or cystic. BI-RADS Category 0 - Assessment Incomplete: Need additional imaging evaluation Breast Density - Category B - Scattered areas of fibroglandular density Breast density Category C or D implies that the patient has dense breast tissue. Dense breast tissue can make it harder to find cancer on a mammogram. Dense breast tissue is also associated with an incr eased risk of breast cancer. This information about the result of the mammogram report was provided to the patient to raise their awareness. Use this report when you speak with the patient about their risks for breast cancer, which includes their family history. At that time, you may recommend additional screening tests (Ultrasoun d or MRI) as these tests may add significant information. A negative radiographic report should not delay biopsy if a dominant or clinically suspicious mass is present. Up to ten percent of cancers are not identified on mammography. A negative report may reinforce clinical impression. Adenosis and dense breasts may obscure an underlying neoplasm. False positive reports average 6 to 10%. Patient will receive a letter notifying them of these results.
== END 2020-12-11 02:43 ==
PROVIDERS: PCP Student in an Organized Health Care Education/Training Program; Visit Provider Nurse Practitioner Family
DX: Z12.31 Encounter for screening mammogram for malignant neoplasm of breast (principal); R92.8 Other abnormal and inconclusive findings on diagnostic imaging of breast
CPT/HCPCS: 77063; 77067

== ENCOUNTER 2021-03-18 22:00 | Emergency (ER) | payer OTHER, SELFPAY ==
[2021-03-18] VITALS (21 sets, daily range): BP systolic 112–144; BP diastolic 71–87; PULSE 75–102; RESP 7–20; TEMP 36.6; O2SAT 94–97
--- NOTE | 2021-03-18 22:00 | RT.EKG_ITS ---
APPROVED REPORT Exam: Resting ECG Reason for Exam: chest pain Patient Location: E HR:92 bpm ECG Measurements Heart Rate 92 AXIS NH 132 P 36 QRSd 87 QRS 28 QT 341 T 23 QTc 422 Conclusion Sinus rhythm...normal P axis, V-rate 60- 99
--- NOTE | 2021-03-18 22:15 | DI.RAD_ITS ---
Exam(s) XR PORTABLE CHEST AP EXAM: XR PORTABLE CHEST AP CLINICAL HISTORY: Chest Pain TECHNIQUE: 2D digital imaging was performed. COMPARISON: CR XR CHEST 2V PA LATERAL from 03/25/2018 FINDINGS: Limited exam due to poor pulmonary inflation and mild respiratory motion. Leads overlie the chest. LUNGS: Clear. No pleural abnormality seen. HEART: Normal. MEDIASTINUM: Normal. BONES: Unremarkable. IMPRESSION: No acute pulmonary findings. DATA REPOSITORY: RADIATION DOSE DELIVERED:
--- NOTE | 2021-03-18 22:16 | ED.GENADUL_ITS ---
Discharge Plan Disposition Patient Disposition: HOME Condition: Stable Discharge Details Clinical Impression: Chest pain Primary Care Provider: Carolyn Cavazos ED Provider: Manuel Cloud Home Meds and New Rx's Prescriptions: Continued (DME) compressor, for nebulizer device See Dose Instructions .ROUTE .MEDSUPPLY Qty: 1 RF: 0 fluticasone propion-salmeterol [Advair Diskus] 250-50 mcg/dose blister with device 1 inh IH BID Qty: 1 RF: 2 ipratropium-albuterol 0.5 mg-3 mg(2.5 mg base)/3 mL solution for nebulization 3 ml IH QID Qty: 180 RF: 3 pantoprazole 20 mg tablet,delayed release (DR/EC) 20 mg PO DAILY RF: 0 aspirin 81 mg tablet,delayed release (DR/EC) 81 mg PO DAILY RF: 0 Discharge Instructions Instructions: Chest Pain (ED) Additional Instructions: your blood work, ekg and chest xray do not show concerning findings at this time follow up with your primary care provider within 1 week if you feel more ill, have severe worsening pain or difficulty breathing return to the emergency department Discharge Data Discharge Date/Time-TO BE ENTERED AT DEPARTURE: 03/19/21 00:36 Medical Decision Making <Areli Olivares - Last Filed: 03/20/21 08:09> 50-year-old female presents to the ER with chief complaint of chest pain which started around 8 PM this evening radiates into the left side of her neck down her left arm associated with vomiting and shortness of breath. Patient does have a history of asthma and states that she did take a nebulizer treatment when this began she usually alleviates her symptoms but tonight it did not. She reports her pain is a 6 out of 10. She did not take any aspirin prior to arrival. She does have a past medical history of GERD, anxiety, asthma surgical history includes hysterectomy oophorectomy. She does report increased stress due to having a dying of cancer at home. cardiac work-up ordered including serial troponin and chest x-ray, 324 mg aspirin ordered. EKG was reviewed by Dr. Dave Cloud MD ER attending, please see his official report old EKG was available for review. CBC shows no leukocytosis, CMP shows BUN 20 creatinine 1.2 GFR is 47.55 glucose 111 initial troponin within normal limit. Discussed initial labs with patient verbalized understanding. Patient does agree to stay for the serial troponin which is due at 1 AM. Patient was given 0.4 mg sublingual nitro which relieved her discomfort. Liter of normal saline ordered. Care is to be handed off to ER attending Dr. Dave Cloud pending serial troponin and disposition. <Manuel Cloud MD - Last Filed: 03/19/21 00:24> patient's second troponin negative and she now is asymptomatic. Her symptoms seem atypical and given her heart score is 3 feel she is appropriate for outpatient management. She will f/u with pcp and return precautions given HPI <Areli Elise - Last Filed: 03/20/21 08:09> General Mode of arrival: ambulatory . Date/Time Provider Initiated Documentation: 03/18/21 22:02 . Limitations to Documentation: no limitations . Information obtained by: patient, RN notes reviewed and old records reviewed . HPI Narrative: 50-year-old female presents to the ER with chief complaint of chest pain which started around 8 PM this evening radiates into the left side of her neck down her left arm associated with vomiting and shortness of breath. Patient does have a history of asthma and states that she did take a nebulizer treatment when this began she usually alleviates her symptoms but tonight it did not. She reports her pain is a 6 out of 10. She did not take any aspirin prior to arrival. She does have a past medical history of GERD, anxiety, asthma surgical history includes hysterectomy oophorectomy. She does report increased stress due to having a dying of cancer at home. Related Data Home Medications Medication Instructions Recorded Confirmed compressor, for nebulizer #1 each 01/01/18 04/26/20 fluticasone 250 mcg-salmeterol 50 1 inh IH BID #1 each 12/02/19 04/26/20 mcg/dose blistr powdr for inhalation ipratropium 0.5 mg-albuterol 3 mg 3 ml IH QID #180 ml 04/26/20 04/26/20 (2.5 mg base)/3 mL nebulization soln pantoprazole 20 mg tablet,delayed 20 mg PO DAILY tab 01/18/21 release aspirin 81 mg tablet,delayed 81 mg PO DAILY 03/06/21 release Previous Rx's Medication Instructions Recorded compressor, for nebulizer #1 each 01/01/18 fluticasone 250 mcg-salmeterol 50 1 inh IH BID #1 each 12/02/19 mcg/dose blistr powdr for inhalation ipratropium 0.5 mg-albuterol 3 mg 3 ml IH QID #180 ml 04/26/20 (2.5 mg base)/3 mL nebulization soln Allergies Allergy/AdvReac Type Severity Reaction Status Date / Time No Known Allergies Allergy Verified 03/18/21 22:22 General Stated Complaint: Chest Pain APOLINAR: 3 Review of Systems <Areli Olivares - Last Filed: 03/20/21 08:09> All systems reviewed & are unremarkable except as noted in HPI and below Cardiovascular Cardiovascular: Denies acrocyanosis, Reports chest pain, Denies leg edema, Reports radiating jaw, neck or arm pain and Reports dyspnea Respiratory Respiratory: Reports cough (dry), Denies hemoptysis, Denies excessive phlegm production and Reports dyspnea Gastrointestinal Gastrointestinal: Reports nausea and Reports vomiting PFSH <Areli Parikhton - Last Filed: 03/20/21 08:09> All Active Problems (Updated 03/18/21 @ 23:27 by Manuel Cloud MD) Chest pain (Acute) Tubular adenoma (Acute ~02/2021) Dr Juarez Bright red rectal bleeding (Acute) Chest pain (Acute) ED 11/07/19 (drove herself, despite house full of family for Friday dinner). Stress Test scheduled for 12/30/19 [ ] Anxiety state, unspecified (Acute) Stress due to illness of family member (Acute) CRPS (complex regional pain syndrome), lower limb (Acute) Hiatal hernia (Chronic) 5cm with fundic gland polyps by EGD Dr Juarez 08/17/18 History of hysterectomy (Acute) History of unilateral oophorectomy (Acute) GERD (gastroesophageal reflux disease) (Chronic) Serious GERD symptoms including vomiting .. managed with PPI, seeing GI (Ann); Esoph dilation needed, 08/2018. Gastroenteritis (Acute) Cough (Acute) Hx of recurrent pneumonia (Acute ~12/2017) Menorrhagia (Chronic 01/16/11) Fatigue (Acute 02/16/07) Hx fatigue, borderline anemia. Current fatigue seems 2' asthma, SOB, bronchitis, tachycardia. No anemia per Dec 2017 labs. Dermatitis (Acute 05/13/16) Tracheobronchitis (Acute) Seen in ED, 11/2017, methylprednisolone IM. Finish oral prednisone 2 doses. Continue inhaler as needed. Add Augmentin 500/125 BID. Call if worsening or return to ED. Rtd/Hospitalized. Seen in clinic x3 with additional ABx, Steroids. Out of work from 12/07 to est 01/19/18. 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 02/25/18: Pulm referral to re-eval asthma and Rx/Tx plan going forward. See 06/19/18 Pulm Consult. Mild Intermittent Asthma with sever/prolonged exacerbation Dx. Increasd Advair dose x 1 week; PFTs ordered .. maybe Sing/SPiriva. CT if not @ baseline soon. 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 Appears stated age. Normal body habitus. Head: Normocephalic, no trauma. Eyes: Pupils PERRL, Red reflex noted, EOM's intact. Eyelids symmetrical without lesions, discharge, or swelling. ENT: Bilateral TM's WNL, External ear normal to inspection, no mastoid TTP, swelling, or erythema, Nasal turbinates WNL, no nasal discharge. Normal dentition, Posterior pharynx WNL, no exudate. Chest: RRR, Normal S1, S2, distal pulses intact. Resp: Lungs clear to auscultation bilaterally, no wheezes, rales, or rhonchi. Abdomen: Soft, non-distended, Normoactive bowel sounds all 4 quads. Musculoskeletal: Normal gait, 5/5 strength to all four extremities. Skin: No suspicious rashes or lesions. Capillary refill less than 2 sec. Neurologic: Cranial nerves II-XII intact. Alert and oriented x 3. Motor: No deficits noted. Sensory: Intact bilaterally all 4 extremities. Reflexes: DTR's intact bilaterally.. Hematologic/Lymphatic: No ecchymosis, no lymphadenopathy. Course <Areli Olivares - Last Filed: 03/20/21 08:09> Vital Signs Vital signs: Vital Signs Temperature 36.6 C 03/18/21 22:08 Pulse 96 H 03/18/21 22:08 Respiratory Rate 18 03/18/21 22:08 Blood Pressure 144/83 H 03/18/21 22:08 Pulse Oximetry 97 03/18/21 22:08 Temperature 36.6 C 03/18/21 22:08 Temperature Source Tympanic 03/18/21 22:08 Pulse 96 H 03/18/21 22:08 Respiratory Rate 18 03/18/21 22:08 Respiratory Effort Short of Breath 03/18/21 22:10 Respiratory Depth Normal 03/18/21 22:10 Respiratory Pattern Normal 03/18/21 22:10 Blood Pressure 144/83 H 03/18/21 22:08 Blood Pressure Position Supine 03/18/21 22:08 Pulse Oximetry 97 03/18/21 22:08 Oxygen Delivery Method Room Air 03/18/21 22:08 Oxygen Flow Rate 0 03/18/21 22:08 Pain Level 6 03/18/21 22:08 Sign Out <Areli Olivares - Alex Filed: 03/20/21 08:09> Sign Out Data: Sign Out Comment: Pending Serial Troponin and disposition. Last updated by Areli Olivares at 03/18/21 23:07
[2021-03-18 22:17] LABS: Abs Immature Grans 0.04 10^3/uL (0.0-0.06); Absolute Basophil Count 0.04 10^3/uL (0.0-0.2); Absolute Eosinophil Count 0.27 10^3/uL (0.0-0.7); Absolute Lymphocyte Count 2.88 10^3/uL (1.2-3.4); Absolute Monocyte Count 0.69 10^3/uL (0.1-0.8); Absolute Neutrophil Count 5.96 10^3/uL (1.2-6.7); Basophils % 0.4; Eosinophils % 2.7; HCT 45.2 % (36.0-46.0); HGB 14.8 g/dL (11.2-15.7); Immature Grans % 0.4; Lymphocytes % 29.1; MCHC 32.7 % (32.0-36.0); MCV 88.6 fL (80-95); MPV 10.6 fL (8.0-11.0); Neutrophils % 60.4; Nucleated RBC 0 %; Platelet Count 233 10^3/uL (130-400); RDW 12.8 % (11.7-14.6); RDW-SD 41.5 fL; WBC 9.88 10^3/uL (4.4-10.8)
[2021-03-18] MEDS: Aspirin 81 MG CHEW 324 MG CH (22:19)
[2021-03-18 22:48] LABS: ALT 32 U/L (14-59); AST 18 U/L (15-37); Albumin 3.8 g/dL (3.4-5.0); Alkaline Phosphatase 90 U/L (46-116); Anion Gap 11.6 mmol/L (3-11); BUN 20 mg/dL (7-18); Bilirubin, Total 0.3 mg/dL (0.2-1.0); CO2 28.4 mmol/L (21.0-32.0); CREATININE 1.2 mg/dL (0.55-1.02); Calcium 9.1 mg/dL (8.5-10.1); Chloride 105 mmol/L (98-107); Estimated GFR 47.55 (mL/min/1.73m2); Glucose 111 mg/dL (74-106); Magnesium 2.3 mg/dL (1.8-2.4); Potassium 3.6 mmol/L (3.5-5.1); Sodium 145 mmol/L (136-145); Total Protein 7.3 g/dL (6.4-8.2); Troponin I < 50 ng/L (<or=60)
[2021-03-18] MEDS: nitroGLYcerin 0.4 MG TAB SL (22:50)
--- NOTE | 2021-03-18 22:54 | DI.VRAD_ITS ---
PROCEDURE INFORMATION: Exam: XR Chest Exam date and time: 03/18/2021 22:17 Age: 50 years old Clinical indication: Patient HX: Chest pain/tightness TECHNIQUE: Imaging protocol: XR of the chest. Views: 1 view. COMPARISON: CT THORAX CTA 11/07/2019 12:41 FINDINGS: Lungs: Low lung volumes. No airspace consolidation. Pleural spaces: No pleural effusion. No pneumothorax. Heart/Mediastinum: No cardiomegaly. Bones/joints: No acute fracture. IMPRESSION: Negative low volume study. Dictated and Authenticated by: Benita iMllard MD. Ordering:BETHANY Singleton MD
[2021-03-18] MEDS: Normal Saline 1,000 ML 1000 ML IV (22:55)
--- NOTE | 2021-03-18 22:56 | SUR.PHASEI ---
pt states pain and tingling reduced by nitro sl x1
[2021-03-19] VITALS: PULSE 81; RESP 13; O2SAT 94
[2021-03-19 00:14] LABS: Troponin I < 50 ng/L (<or=60)
== END 2021-03-19 00:36 | disposition home or self-care (01) ==
PROVIDERS: Registered Nurse Emergency; Emergency Provider Emergency Medicine; PCP Student in an Organized Health Care Education/Training Program
DX: R07.9 Chest pain, unspecified (principal); R11.10 Vomiting, unspecified; R06.02 Shortness of breath
CPT/HCPCS: 36415; 80053; 93005; 96360; 99284; 71045; 83735; 84484; 85025; 93010

== ENCOUNTER 2021-04-09 01:17 | Outpatient (CLI) | payer OTHER, SELFPAY ==
--- NOTE | 2021-04-09 09:00 | ETT_ITS ---
APPROVED REPORT Exam: Exercise Treadmill Patient Location: Out-Patient Room/Bed: Stress Nurse: Bonnie Huber RN Ordering Provider:ALESSANDRO HILDA, Contact Number: [phone] BMI: 39.60 Baseline Rhythm: Sinus Rhythm Indications: Chest pain Medical History Medical History: Anxiety, gerd, asthma, obesity Cardiac Medications: Aspirin, nitroglycerin,. levalbuterol, fluticasone, ipratropium Allergies: NKA Cardiac Risk Factors: Asthma, obesity, family hx Previous Cardiac Procedures: None Pretest Chest Pain Characteristics: None Exercise History: Physically active Physical Disabilities: None Lung Sounds: Clear to auscultation Heart Sounds: Regular Stress Test Details Test: Exercise stress testing was performed using a Walter protocol. Rest Stress HR Resting HR Supine: 77 bpm Max Heart Rate (APMHR): 170 bpm Resting HR Standin bpm Target HR (85% APMHR): 144 bpm Max HR Achieved: 156 bpm % of APMHR: 91 Recovery HR: 98 bpm HR response to stress: Normal HR response to stress BP Resting BP Supine: 115/72 mmHg Resting BP Standin/84 mmHg Max BP: 142/78 mmHg Recovery BP: 130/78 mmHg BP response to stress: Normal blood pressure response to stress. ECG Resting ECG: Sinus Rhythm Ectopy: None Stress ECG: Sinus Tachycardia ST Change: No significant ST segment changes noted Arrhythmia: None Recovery ECG: Sinus Rhythm, Recovery ST Change: No significant ST segment changes noted Recovery Arrhythmia: Rare PAC Clinical Reason for Termination: Fatigue Stress Symptoms: Leg Fatigue, Dyspnea Exercise duration: 9 min06 sec Highest Stage Reached: Stage 4: 4.2 mph at 16% grade. Exercise capacity: 10.31 METs Plata Treadmill Score: 8.2 Rate Pressure Product: [id number] Stress ECG Conclusion 1. The resting electrocardiogram was within normal limits 2. Patient exercised on the Walter protocol and completed a workload of 10.31 METS, limited by fatigue and shortness of breath 3. Normal heart rate and blood pressure response to exercise. Patient achieved 91% of predicted hear t rate for age 4. There was no electrocardiographic evidence of myocardial ischemia with exercise 5. Rare atrial premature beats were noted Plata Treadmill Score is 8.2 which is Low risk. Stress Test Summary STAGE Time (mins) Speed (mph) Grade (%) HR BP SYMPTOMS METS Supine 77 115/72 Standing 90 115/84 SpO2 97% 1 3 1.7 10 119 124/84 Mild SOB, SpO2 94% 4.6 2 6 2.5 12 126 128/86 Mild SOB, SpO2 95% 7 3 9 3.4 14 154 132/88 Moderate SOB, SpO2 94% 10.2 4 12 4.2 16 156 12.9 1 min recovery 135 138/92 Mild SOB, SpO2 96% 3 min recovery 103 142/78 SOB resolved, SpO2 96% 6 min recovery 98 130/78 SpO2 96%
== END 2021-04-09 01:37 ==
LOC: DI 01:18
PROVIDERS: PCP Student in an Organized Health Care Education/Training Program; Visit Provider Student in an Organized Health Care Education/Training Program
DX: R07.9 Chest pain, unspecified (principal); J45.909 Unspecified asthma, uncomplicated; E66.9 Obesity, unspecified; Z82.49 Family history of ischemic heart disease and other diseases of the circulatory system
CPT/HCPCS: 93017

== ENCOUNTER 2021-12-01 22:02 | Emergency (ER) | payer OTHER, SELFPAY ==
[2021-12-01 22:10] VITALS: BP 124/81; PULSE 96; RESP 16; TEMP 36.6; O2SAT 98
[2021-12-01] MEDS: Dexamethasone 10 MG/ML VIAL IVP (22:23)
--- NOTE | 2021-12-01 22:26 | ED.GENADUL_ITS ---
Discharge Plan Disposition Patient Disposition: HOME Condition: Improving Discharge Details Clinical Impression: Otitis externa Primary Care Provider: Carolyn Cavazos ED Provider: Lionel Berg Home Meds and New Rx's Prescriptions: New ofloxacin 0.3 % drops 10 drp otic (ear) DAILY 7 Days Qty: 5 0RF No Action (DME) compressor, for nebulizer device See Dose Instructions .ROUTE .MEDSUPPLY Qty: 1 0RF Dose Instruction: As directed Rx Instructions: As directed fluticasone propion-salmeterol [Advair Diskus] 250-50 mcg/dose blister with device 1 inh IH BID Qty: 1 2RF Rx Instructions: ADVAIR DISKUS .. levalbuterol HCl [Xopenex] 1.25 mg/3 mL solution for nebulization 1.25 mg inhalation Q1-4H PRN (Reason: shortness of breath or wheezing) Qty: 15 1RF Rx Instructions: Trial for SOB with recent CP & Tachycardia nitroglycerin 0.4 mg tablet, sublingual 0.4 mg sublingual Q5-15M PRN (Reason: chest pain) Qty: 10 0RF Rx Instructions: Trial, do not exceed 3 doses per episode ipratropium-albuterol 0.5 mg-3 mg(2.5 mg base)/3 mL solution for nebulization 3 ml IH QID Qty: 180 3RF Rx Instructions: BID PRN. May take Q2H if SOB or wheezing. pantoprazole 20 mg tablet,delayed release (DR/EC) 20 mg PO DAILY Rx Instructions: decreased from BID to QD by Dr. Juarez 01/2021 aspirin 81 mg tablet,delayed release (DR/EC) 81 mg PO DAILY Rx Instructions: for sessile polyp prevention Discharge Instructions Instructions: Otitis Externa (ED) Additional Instructions: Please use eardrops as instructed. Please return to the emergency department for any worsening symptoms. Medical Decision Making 51-year-old female presents with left ear discomfort over the past several days in the setting of recently being in a hot tub, pain was worse after putting a ear plug in the left ear in order to go back in a hot tub. No purulent drainage, no change in hearing no fevers or chills. Slight irritation to external auditory canal consistent with mild otitis externa no large exudate no inflammation of the TM no mastoid tenderness. Have dose dexamethasone for anti- inflammatory effects and will start on otic drops. Home care instructions and return precautions for worsening symptoms given. HPI General Date/Time Provider Initiated Documentation: 12/01/21 22:10 . HPI Narrative: 51-year-old female presents with several days of left ear discomfort in the setting of recently being in a hot tub. Denies hearing issues denies purulent discharge denies fevers or chills. Pain was worse after putting an ear plug to get back in a hot tub this evening. Related Data Home Medications Medication Instructions Recorded Confirmed compressor, for nebulizer #1 ea 01/01/18 12/01/21 fluticasone 250 mcg-salmeterol 50 1 inh inhalation BID #1 ea 12/02/19 12/01/21 mcg/dose blistr powdr for inhalation (Advair Diskus) ipratropium 0.5 mg-albuterol 3 mg 3 ml inhalation QID #180 mL 04/26/20 12/01/21 (2.5 mg base)/3 mL nebulization soln pantoprazole 20 mg tablet,delayed 20 mg PO DAILY 01/18/21 12/01/21 release aspirin 81 mg tablet,delayed 81 mg PO DAILY 03/06/21 12/01/21 release levalbuterol HCl 1.25 mg/3 mL 1.25 mg (3 mL) inhalation Q1-4H 03/25/21 12/01/21 solution for nebulization (Xopenex) PRN shortness of breath or wheezing #15 mL nitroglycerin 0.4 mg sublingual 0.4 mg sublingual Q5-15M PRN chest 03/25/21 12/01/21 tablet pain #10 tabs ofloxacin 0.3 % ear drops 10 drp otic (ear) DAILY 7 days #5 12/01/21 mL Previous Rx's Medication Instructions Recorded compressor, for nebulizer #1 ea 01/01/18 fluticasone 250 mcg-salmeterol 50 1 inh inhalation BID #1 ea 12/02/19 mcg/dose blistr powdr for inhalation (Advair Diskus) ipratropium 0.5 mg-albuterol 3 mg 3 ml inhalation QID #180 mL 04/26/20 (2.5 mg base)/3 mL nebulization soln levalbuterol HCl 1.25 mg/3 mL 1.25 mg (3 mL) inhalation Q1-4H 03/25/21 solution for nebulization (Xopenex) PRN shortness of breath or wheezing #15 mL nitroglycerin 0.4 mg sublingual 0.4 mg sublingual Q5-15M PRN chest 03/25/21 tablet pain #10 tabs ofloxacin 0.3 % ear drops 10 drp otic (ear) DAILY 7 days #5 12/01/21 mL Allergies Allergy/AdvReac Type Severity Reaction Status Date / Time No Known Allergies Allergy Verified 12/01/21 22:13 General Stated Complaint: EarProblem APOLINAR: 3 Review of Systems Narrative: Review of Systems Constitutional: negative Eyes: negative ENT: Ear pain Cardiovascular: negative Respiratory: negative Gastrointestinal: negative : negative Musculoskeletal: negative Skin: negative Neurologic: negative Psych: negative PFSH All Active Problems (Updated 12/01/21 @ 22:33 by Lionel Berg MD) Otitis externa (Acute) Tubular adenoma (Acute ~02/2021) Dr Juarez .. Polyps removed, 6 mo FU requested [ ] [facility] - 08/23/21 Colonoscopy, recalled for 3 years. 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 02/25/18: Pulm referral to re-eval asthma and Rx/Tx plan going forward. See 06/19/18 Pulm Consult. Mild Intermittent Asthma with sever/prolonged exacerbation Dx. Increasd Advair dose x 1 week; PFTs ordered .. maybe Sing/Spiriva. CT if not @ baseline soon. [ ] ik, 06/2018 Anxiety state, unspecified (Acute) Stress due to illness of family member (Acute) CRPS (complex regional pain syndrome), lower limb (Acute) Hiatal hernia (Chronic) 5cm with fundic gland polyps by EGD Dr Juarez 08/17/18 GERD (gastroesophageal reflux disease) (Chronic) Serious GERD symptoms including vomiting .. managed with PPI, seeing GI (Ann); Esoph dilation needed, 08/2018. Gastroenteritis (Acute) Cough (Acute) Tracheobronchitis (Acute) Seen in ED, 11/2017, methylprednisolone IM. Finish oral prednisone 2 doses. Continue inhaler as needed. Add Augmentin 500/125 BID. Call if worsening or return to ED. Rtd/Hospitalized. Seen in clinic x3 with additional ABx, Steroids. Out of work from 12/07 to est 01/19/18. 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 [employer]).. Hx ED, 11/07/19 (drove herself, despite house full of family for Friday dinner). Stress Test scheduled for 12/30/19 [ ] Dermatitis (05/13/16) DVT prophylaxis Fatigue (02/16/07) Hx fatigue, borderline anemia. Current fatigue seems 2' asthma, SOB, b ronchitis, tachycardia. No anemia per Dec 2017 labs. Hx of recurrent pneumonia (~12/2017) Injury of left foot (05/20/16) Menorrhagia (01/16/11) Surgical History (Updated 09/21/21 @ 16:18 by Kyra Arenas RN) History of colonoscopy 08/23/21-Dr. Juarez. copy of Pathology report received via fax on 09/21/21; diagnosis: A) 4mm Nodule Proximal Ascending colon pervious polyp site: Colonic muscosa showing focal lymphoid aggregate. No residual adenomatous change noted. B) 4mm Descending colon polyp: Colonic mucosa with hyperplastic mucosal change. History of hysterectomy History of unilateral oophorectomy Hx of endoscopy (~11/2018) Hysterectomy (01/17/11) [facility]-DR. STEVENSON Oophrectomy, Left (01/17/11) [facility]; DR. 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 Sexually active: Yes Current gender identity: female What type of physical activity do you participate in: walking Duration: 30-45 minutes/day Frequency: 5-6 times per week Seatbelt use: always Water heater temp set <120 deg: Yes Working smoke detector in home: Yes Fire extinguisher in home: Yes Carbon monox detector in home: Yes Firearms in home: Yes Firearms unloaded and locked: Yes Do you feel safe at home: Yes Do you feel safe in your relationship?: Yes Exam Narrative Exam Narrative: Physical Examination General: alert, awake, cooperative, resting comfortably, no acute distress HEENT: Slight minimal erythema to external auditory canal without large exudate, TMs clear bilaterally; no discoloration or tenderness over mastoids; normocephalic, atraumatic; PERRL, EOM intact, conjunctiva normal; no nasal discharge; moist mucous membranes, oral and pharyngeal mucosa normal, tolerating secretions Neck: supple, trachea midline; full ROM Chest: normal to inspection Respiratory: normal respiratory effort, speaking in full sentences, clear to auscultation, no wheezing, rales or rhonchi Cardiac: regular rate, regular rhythm, S1S2 intact, no murmurs rubs or gallops GI: abdomen soft, non-tender, non-distended; no palpable mass or hepatosplenomegaly Skin: no lesions, rashes or trauma appreciated Neuro: AAOx3, normal speech, moving all extremities Psych: Appropriate mood and affect Course Vital Signs Vital signs: Vital Signs Temperature 36.6 C 12/01/21 22:10 Pulse 96 H 12/01/21 22:10 Respiratory Rate 16 12/01/21 22:10 Blood Pressure 124/81 12/01/21 22:10 Pulse Oximetry 98 12/01/21 22:10 Temperature 36.6 C 12/01/21 22:10 Temperature Source Temporal Artery Scan 12/01/21 22:10 Pulse 96 H 12/01/21 22:10 Respiratory Rate 16 12/01/21 22:10 Respiratory Effort 12/01/21 22:10 Blood Pressure 124/81 12/01/21 22:10 Blood Pressure Position Sitting 12/01/21 22:10 Pulse Oximetry 98 12/01/21 22:10 Oxygen Delivery Method Room Air 12/01/21 22:10 Oxygen Flow Rate 0 12/01/21 22:10 Pain Level 5 12/01/21 22:10
== END 2021-12-01 22:47 | disposition home or self-care (01) ==
PROVIDERS: Emergency Provider Emergency Medicine; PCP Student in an Organized Health Care Education/Training Program
DX: H60.92 Unspecified otitis externa, left ear (principal)
CPT/HCPCS: 96374; 99284; J1100

== ENCOUNTER 2022-09-27 00:25 | Outpatient (CLI) | payer OTHER, SELFPAY ==
--- NOTE | 2022-09-27 08:45 | DI.MAMMO_ITS ---
Exam(s) MAMMO SCREENING EXAM: MAMMO SCREENING CLINICAL HISTORY: screening. TECHNIQUE: Bilateral full field digital CC and MLO mammographic images were obtained with 3D tomosyn thesis and utilizing computer aided detection (CAD). COMPARISON: Prior mammograms were reviewed. FINDINGS: There has been no significant change in the appearance and distribution of the fibroglandular tissue. There are no CAD designations. There are no new spiculated masses nor malignant appearing microcalcification groups. There is no significant architectural distortion nor skin thickening-retraction. IMPRESSION: No radiographic evidence of malignancy. BI-RADS Category 1 - Negative Breast Density - Category A - Almost entirely fatty Breast density Category C or D implies that the patient has dense breast tissue. Dense breast tissue can make it harder to find cancer on a mammogram. Dense breast tissue is also associated with an incr eased risk of breast cancer. This information about the result of the mammogram report was provided to the patient to raise their awareness. Use this report when you speak with the patient about their risks for breast cancer, which includes their family history. At that time, you may recommend additional screening tests (Ultrasoun d or MRI) as these tests may add significant information. A negative radiographic report should not delay biopsy if a dominant or clinically suspicious mass is present. Up to ten percent of cancers are not identified on mammography. A negative report may reinforce clinical impression. Adenosis and dense breasts may obscure an underlying neoplasm. False positive reports average 6 to 10%. Patient will receive a letter notifying them of these results.
== END 2022-09-27 00:45 ==
LOC: DI 00:25
PROVIDERS: PCP Student in an Organized Health Care Education/Training Program; Visit Provider Nurse Practitioner Women's Health
DX: Z12.31 Encounter for screening mammogram for malignant neoplasm of breast (principal)
CPT/HCPCS: 77063; 77067

== ENCOUNTER 2024-12-27 09:20 | Outpatient (REF) | payer OTHER, SELFPAY ==
--- NOTE | 2024-12-27 09:10 | PAPFT_PTH ---
PATIENT: Yandy Awad LOC: [facility] U#:[id number] AGE/SX: 54/F ROOM: RE12/27/[address]: Sheron Cloud NP : 1970 BED: DIS: 12/27/2024 SPEC #: [id number] RECD: 12/27/24 11:45 STATUS: ENZO REAlina #: [id number] APOORVA: 12/27/24 09:[address]: Sheron Cloud NP DEPT: [facility] Cytology RECD BY: Cesilia Foreman ENTERED: 12/27/24 11:45 SP TYPE: PAPFT OTHR DR: Don Helms, DO Tissues: 1 - CX/ENDOCX FOR PAP SMEARS Procedures: PAP THIN PREP/[facility] Screening HPV DNA PROBE Comments: [id number] (HPV 16 & 18/45)
== END 2024-12-27 09:21 | disposition home or self-care (01) ==
LOC: LBN 09:20
PROVIDERS: PCP Family Medicine; Visit Provider Nurse Practitioner Women's Health
DX: Z12.4 Encounter for screening for malignant neoplasm of cervix (principal)
CPT/HCPCS: 88142; 87624

== ENCOUNTER 2024-12-29 00:05 | Outpatient (CLI) | payer OTHER, SELFPAY ==
[2024-12-29 13:31] LABS: Abs Immature Grans 0.02 10^3/uL (0.0-0.06); HCT 45.6 % (36.0-46.0); HGB 15.3 g/dL (11.2-15.7); Immature Grans % 0.2 %; MCH 29.9 pg (27.0-33.0); MCHC 33.6 % (32.0-36.0); MCV 89 fL (80-95); MPV 11.8 fL (8.0-11.0); Platelet Count 218 10^3/uL (130-400); RBC 5.11 10^6/uL (3.93-5.22); RDW 12.7 % (11.7-14.6); RDW-SD 42.3 fL; WBC 9.06 10^3/uL (4.4-10.8)
[2024-12-29 13:34] LABS: Hemoglobin A1C 5.4 % (<5.7)
[2024-12-29 14:31] LABS: ALT 31 U/L (14-59); AST 23 U/L (15-37); Albumin 3.6 g/dL (3.4-5.0); Alkaline Phosphatase 71 U/L (46-116); Anion Gap 8.7 mmol/L (3-11); BUN 22 mg/dL (7-18); Bilirubin, Total 0.4 mg/dL (0.2-1.0); CO2 27.3 mmol/L (21.0-32.0); Calcium 9.3 mg/dL (8.5-10.1); Calculated LDL 77 mg/dL (<100); Chloride 102 mmol/L (98-107); Cholesterol 145 mg/dL (<200); Estimated GFR 75.97 (mL/min/1.73m2); Glucose 77 mg/dL (74-106); HDL Cholesterol 56 mg/dL (>or=50); Potassium 3.9 mmol/L (3.5-5.1); Sodium 138 mmol/L (136-145); TSH 1.58 uIU/mL (0.36-3.74); Total Protein 7.0 g/dL (6.4-8.2); Triglyceride 64 mg/dL (<150)
[2024-12-29 15:04] LABS: Glucose Negative (Negative)
[2024-12-29 15:18] LABS: C & S Indicated? No; WBC Negative HPF (0-5)
== END 2024-12-29 00:06 | disposition home or self-care (01) ==
LOC: LBO 00:05
PROVIDERS: PCP Family Medicine; Visit Provider Family Medicine
DX: R53.83 Other fatigue (principal); Z13.9 Encounter for screening, unspecified
CPT/HCPCS: 36415; 80053; 80061; 81003; 81015; 83036; 84443; 85025

== ENCOUNTER 2024-12-30 05:38 | Outpatient (CLI) | payer OTHER, SELFPAY ==
--- NOTE | 2024-12-30 12:47 | DI.MAMMO_ITS ---
Exam(s) MAMMO SCREENING EXAM: MAMMO SCREENING CLINICAL HISTORY: screening TECHNIQUE: Mammograms were interpreted according to the usual protocol including computer analysis with CAD system, tomosynthesis and C-view imaging. COMPARISON: 2015 through 2022 FINDINGS: The breasts are composed of mainly fatty density , Breast Density category A. No suspicious masses or suspicious microcalcifications are seen. No skin thickening or abnormal axillary lymph nodes are seen. There has been no significant change from prior exams. IMPRESSION: BI-RADS Category 1, Negative mammogram Yearly screening mammography is recommended. Breast Density- Category A - The breast are almost entirely fatty. Breast density Category C or D implies that the patient has dense breast tissue. Dense breast tissue can make it harder to find cancer on a mammogram. Dense breast tissue is also associated with an increased risk of breast cancer. This information about the result of the mammogram report was provided to the patient to raise their awareness. Use this report when you speak with the patient about their risks for breast cancer, which includes their family history. At that time, you may recommend additional screening tests (Ultrasound or MRI) as these tests may add significant information. A negative radiographic report should not delay biopsy if a dominant or clinically suspicious mass is present. Up to ten percent of cancers are not identified on mammography. A negative report may reinforce clinical impression. Adenosis and dense breasts may obscure an underlying neoplasm. False positive reports average 6 to 10%. Patient will receive a letter notifying them of these results.
== END 2024-12-30 05:58 ==
LOC: DI 05:38
PROVIDERS: PCP Family Medicine; Visit Provider Nurse Practitioner Women's Health
DX: Z12.31 Encounter for screening mammogram for malignant neoplasm of breast (principal); R92.313 Mammographic fatty tissue density, bilateral breasts
CPT/HCPCS: 77063; 77067

== ENCOUNTER 2025-02-26 11:01 | Outpatient (REF) | payer OTHER, SELFPAY ==
[2025-02-26 16:00] LABS: Glucose Negative (Negative)
[2025-02-26 16:10] LABS: WBC >50 HPF (0-5)
== END 2025-02-26 11:02 | disposition home or self-care (01) ==
LOC: LBN 11:01
PROVIDERS: PCP Family Medicine; Visit Provider Physician Assistant
DX: R30.0 Dysuria (principal)
CPT/HCPCS: 81003; 81015